=== PATIENT | female | born 1980 | race Caucasian/White ===

== ENCOUNTER 2020-02-11 13:29 | Emergency (ER) | payer OTHER, SELFPAY ==
[2020-02-11 13:37] VITALS: BP 132/101; PULSE 108; RESP 16; TEMP 36.8; O2SAT 98; BMI 24.7
--- NOTE | 2020-02-11 13:44 | XR_ITS ---
PROCEDURE: XR CHEST 2V CLINICAL HISTORY: weakness Smoker COMPARISON: No exams were available for comparison FINDINGS: The cardiomediastinal silhouette and pulmonary vascularity are within normal limits. The lungs are clear without infiltrates, suspicious nodules, or pleural effusions. No acute bony abnormalities. IMPRESSION: No acute findings. Dictated by: Pedro Paiz MD 02/11/2020 15:25 Electronically signed by Pedro Paiz MD in [facility] 02/11/2020 15:25
[2020-02-11 13:50] LABS: Microscopic, Urine URINE MICROSCOPIC (MICROSCOPIC)
[2020-02-11 13:53] LABS: Appearance,Urine CLOUDY (Clear); Bilirubin,Urine Negative (Negative); Blood, Urine Negative (Negative); Color,Urine YELLOW (Yellow); Glucose,Urine (UA) Negative (Negative); Ketones,Urine Negative (Negative); Leukocyte Esterase,Urine Negative (Negative); Nitrate,Urine Negative (Negative); PH,Urine 7.5 (5.0-8.5); Protein,Urine Negative (Negative); Urobilinogen,Urine 0.2 EU/dl (0.2)
[2020-02-11 14:00] LABS: Amorphous Sediment,Urine 2+ /lpf; Bacteria,Urine 2+ /lpf
--- NOTE | 2020-02-11 14:18 | PC.NURSE ---
x4 att for iv insucessful , lab called to draw blood
--- NOTE | 2020-02-11 14:19 | PC.NURSE ---
pt back from xray
[2020-02-11 14:45] LABS: Basophils # 0.1 K/mm3 (0-0.2); Basophils % 1.4 % (0.1-2.0); Eosinophils # 0.1 K/mm3 (0.0-0.4); Eosinophils % 1.7 % (0.1-12.0); Hematocrit 40.2 % (37.0-47.0); Hemoglobin 12.9 g/dL (12.2-16.2); Lymphocytes # 1.6 K/mm3 (0.7-4.5); Lymphocytes % 21.4 % (10-50); Mean Corpuscular HGB Conc 32.2 g/dL (31.8-35.4); Mean Corpuscular Hemoglobin 29.9 pg (27.0-31.2); Mean Corpuscular Volume 92.9 fl (81-99); Mean Platelet Volume 7.6 fl (7.4-10.4); Monocytes # 0.3 K/mm3 (0.1-1.0); Monocytes % 4.4 % (1.7-9.3); Neutrophils # 5.3 K/mm3 (1.8-7.8); Platelet Count 262 K/mm3 (142-424); Red Blood Count 4.32 M/mm3 (4.20-5.40); Red Cell Distribution Width 13.2 % (11.5-17.5); White Blood Count 7.5 K/mm3 (4.8-10.8)
[2020-02-11 15:07] LABS: Erythrocyte Sedimentation Rate 16 mm/hr (0-20)
[2020-02-11 15:08] LABS: Alanine Aminotransferase 23 U/L (12-78); Albumin Level 4.1 g/dl (3.5-5.0); Albumin/Globulin Ratio 1.4 (1.1-1.8); Alkaline Phosphatase 75 U/L (38-126); Anion Gap 10.5 mEq/L (5-15); Aspartate Amino Transferase 25 U/L (14-36); Blood Urea Nitrogen 18 mg/dl (7-17); Calcium 9.9 mg/dl (8.4-10.2); Carbon Dioxide 26 mmol/L (22.0-30.0); Chloride 105 mmol/L (98-107); Creatinine Clearance Estimated 102 mL/min (50-200); Estimated Glomerular Filt Rate 92 ml/min (>60); GFR (African American) 112 ML/MIN (>60); Globulin 2.9 g/dL (1.3-3.2); Glucose 84 mg/dl (74-100); Potassium 4.5 mmoL/L (3.5-5.1); Sodium 137 mmol/L (136-145)
[2020-02-11 15:11] LABS: Bilirubin,Total 0.1 mg/dl (0.2-1.3)
[2020-02-11 15:13] LABS: C-Reactive Protein 8.8 mg/L (0-4)
--- NOTE | 2020-02-11 15:33 | HMH.EDWEAK ---
ED Disposition Clinical Impression: Viral syndrome Disposition: Home, Self-Care Condition on Discharge: Good Instructions: DI for Muscle Weakness Additional Instructions: Please self quarantine for 14 days I am not given your diagnosis of COVID-19 but she does have symptoms that can present with COVID-19. Given the fact that you are feeling ill and have some the symptoms it is recommended that you do self quarantine for 14 days if her symptoms start to progress i.e. fevers shakes chills cough or increased shortness of breath please return to the emergency department for testing. Referrals: Provider,Referral, [Primary Care Provider] - - Critical Care Critical Care Time: No Attestation: On 02/11/20, the high probability of a clinically significant, sudden or life threatening deterioration of the following system(s) required my full and direct attention, intervention and personal management. The time I documented below is in addition to time spent performing reported procedures but includes the following listed in this critical care notation. Medical Decision Making - Medical Records Medical records reviewed: Yes: I reviewed the patient's medical records. - Alexsander Inquiry Pt receiving controlled substance: No Vital Signs: 02/11/20 13:37 Temperature 98.2 F Temperature Source Oral Pulse Rate [Left Radial] 108 H Respiratory Rate 16 Blood Pressure [Right Arm] 132/101 H Blood Pressure Mean [Right Arm] 111 Blood Pressure Position [Right Arm] Sitting 02 Sat by Pulse Oximetry 98 Oxygen Delivery Method Room Air - Lab Data Lab results reviewed: Yes: I reviewed the patient's lab results. Lab Results 02/11/20 13:38: Urine Color Yellow, Urine Appearance Cloudy, Urine pH 7.5, Ur Specific Vowinckel 1.020, Urine Protein Negative, Urine Glucose (UA) Negative, Urine Ketones Negative, Urine Blood Negative, Urine Nitrate Negative, Urine Bilirubin Negative, Urine Urobilinogen 0.2, Ur Leukocyte Esterase Negative, Urine RBC 3-5, Urine WBC 10-20, Ur Squamous Epith Cells 5-10, Amorphous Sediment 2+, Urine Bacteria 2+ 02/11/20 14:30: WBC 7.5, RBC 4.32, Hgb 12.9, Hct 40.2, MCV 92.9, MCH 29.9, MCHC 32.2, RDW 13.2, Plt Count 262, MPV 7.6, Neut % (Auto) 71.0, Lymph % (Auto) 21.4, Toole % (Auto) 4.4, Eos % (Auto) 1.7, Baso % (Auto) 1.4, Neut # (Auto) 5.3, Lymph # (Auto) 1.6, Toole # (Auto) 0.3, Eos # (Auto) 0.1, Baso # (Auto) 0.1 02/11/20 14:30: Sodium 137, Potassium 4.5, Chloride 105, Carbon Dioxide 26, Anion Gap 10.5, BUN 18 H, Creatinine 0.70, Estimated Creat Clear 102, Estimated GFR 92, Est GFR ( Amer) 112, Glucose 84, Calcium 9.9, Total Bilirubin 0.1 L, AST 25, ALT 23, Alkaline Phosphatase 75, C-Reactive Protein 8.8 H, Total Protein 7.0, Albumin 4.1, Globulin 2.9, Albumin/Globulin Ratio 1.4 02/11/20 14:30: ESR 16 Result diagrams: 02/11/20 14:30 02/11/20 14:30 Orders (Tests/Meds): ORDERS Category Date Time Status Lactic Acid Stat Lab 02/11/20 14:20 Ordered Blood Culture Stat Micro 02/11/20 14:20 Ordered Urine Culture Stat Micro 02/11/20 13:38 Received Weakness HPI - General Chief complaint: Weakness Stated complaint: no energy, hands swollen,rash Time Seen by Provider: 02/11/20 15:00 Mode of Arrival: Ambulatory Source of Information: Patient Limitations: No Limitations Description of Symptoms (Recalled from ER Triage Doc. by RN): to ed per pvt car with c/o fatique, generalized weakness, joint pain, swelling hands and feet for weeks, headache starting yesterday pt denies chest pain, fever, cough or sick contacts. - History of Present Illness HPI Narrative: Pleasant 39-year-old female presents the ED with arthralgias myalgias and fatigue. She states the symptoms been going on for about 2 to 3 days. 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 She also stated that she looked up online about Loni Chelsie's disease and
[2020-02-11 15:43] VITALS: BP 115/78; PULSE 78; RESP 18; TEMP 36.6; O2SAT 98
== END 2020-02-11 15:44 | disposition home or self-care (01) ==
PROVIDERS: Emergency Provider Family Medicine
DX: B34.9 Viral infection, unspecified (principal); M79.10 Myalgia, unspecified site; F17.210 Nicotine dependence, cigarettes, uncomplicated
CPT/HCPCS: 36415; 71046; 80053; 81001; 85025; 85651; 86140; 87086; 99282; 99283

== ENCOUNTER 2020-10-06 02:45 | Emergency (ER) | payer OTHER, SELFPAY ==
[2020-10-06 02:47] VITALS: BP 161/101; PULSE 105; RESP 16; TEMP 36.6; O2SAT 98; BMI 24.7
--- NOTE | 2020-10-06 03:11 | HMH.EDWNDL ---
ED Disposition Clinical Impression: Laceration of finger Qualifiers: Encounter type: initial encounter Finger: middle finger Damage to nail status: unspecified Foreign body presence: without foreign body Laterality: right Qualified Code(s): S61.212A - Laceration without foreign body of right middle finger without damage to nail, initial encounter Disposition: Home, Self-Care Condition on Discharge: Good Instructions: DI for Laceration Repair Additional Instructions: suture out 10 days and recheck if needed Referrals: PCP,No [Primary Care Provider] - - Critical Care Critical Care Time: No Attestation: On 10/06/20, the high probability of a clinically significant, sudden or life threatening deterioration of the following system(s) required my full and direct attention, intervention and personal management. The time I documented below is in addition to time spent performing reported procedures but includes the following listed in this critical care notation. Medical Decision Making - Medical Records Medical records reviewed: Yes: I reviewed the patient's medical records. - Alexsander Inquiry Pt receiving controlled substance: No Vital Signs: 10/06/20 02:47 Temperature 97.8 F Temperature Source Oral Pulse Rate [Left Radial] 105 H Respiratory Rate 16 Blood Pressure [Right Arm] 161/101 H Blood Pressure Mean [Right Arm] 121 02 Sat by Pulse Oximetry 98 Oxygen Delivery Method Room Air Orders (Tests/Meds): ORDERS Category Date Time Status XR finger RT min 2V Stat Exams 10/06/20 03:03 Ordered Wound/Laceration HPI - General Chief Complaint: Wound/Laceration Stated Complaint: cut middle finger on right hand Time Seen by Provider: 10/06/20 03:00 Mode of Arrival: Ambulatory Source of Information: Patient, Medical Record Limitations: No Limitations Description of Symptoms (Recalled from ER Triage Doc. by RN): pt stated she dropped a a mirror on her right index finger. laceration present to the right index finger on assessment. pt stated the mirror didnt break on impact. pt reported getting her tetanus shot 2 years ago. - History of Present Illness HPI narrative: lac to rt middle finger at tip - Onset (ago): hour(s) Extremity Location: Right: hand (middle finger ) Place: home Patient tetanus UTD: Yes Context: accidental Associated symptoms: none - Related Data Allergies Allergy/AdvReac Type Severity Reaction Status Date / Time INGREDIENT: NO KNOWN - NO Allergy Unknown Uncoded 10/02/17 15:33 KNOWN DRUG ALLERGY [facility] History - Hepatitis A Screen Drug use history?: No High risk sexual behaviors?: No History of sexually transmitted infection?: No Currently employed?: No Childcare worker?: No Do you have indoor plumbing?: Yes Do you have electricity?: Yes Attestation statement:: This patient has been screened for Hepatitis A risk factors. I have reviewed the patient's past medical history: Yes - Social History Smoking Status: Current every day smoker Tobacco Type: cigarettes # Packs/Day (cigarettes): 0 Alcohol Intake: never Occupational Status: other Housing: other ROS Obtained: Yes All systems reviewed & no additional complaints - Constitutional Constitutional: Denies fever(s) - Eyes Eyes: Denies change in vision - ENT Ears, Nose, Mouth, and Throat: Denies sore throat - Cardiovascular Cardiovascular: Denies chest pain - Respiratory Respiratory: No stridor - Gastrointestinal Gastrointestingal: Denies: abdominal pain - Genitourinary Female Genitourinary: Denies hematuria - Musculoskeletal Musculoskeletal: Denies joint pain - Integumentary/Breasts Skin/Breast: Reports as per HPI, Denies rash, Reports other (1 cm flap lac rt middle finger ) - Neurologic Neurologic: Denies seizure-like activity Physical Exam - General General appearance: alert - Head Head exam: normocephalic - Eye Eye exam: Present: ART EOMI - ENT ENT exam: Present: amarilys
[2020-10-06 03:41] VITALS: BP 146/98; PULSE 92; RESP 16; TEMP 36.6; O2SAT 98
== END 2020-10-06 03:44 | disposition home or self-care (01) ==
PROVIDERS: Emergency Provider Emergency Medicine
DX: S61.212A Laceration without foreign body of right middle finger without damage to nail, initial encounter (principal); W26.8XXA Contact with other sharp object(s), not elsewhere classified, initial encounter; Y92.019 Unspecified place in single-family (private) house as the place of occurrence of the external cause; F17.210 Nicotine dependence, cigarettes, uncomplicated
CPT/HCPCS: 12001; 99282

== ENCOUNTER → 2021-01-18 15:04 | Outpatient (CLI) | payer OTHER, SELFPAY ==
[2021-01-18 15:24] LABS: Alanine Aminotransferase 29 U/L (12-78); Albumin Level 4.6 g/dl (3.5-5.0); Albumin/Globulin Ratio 1.4 (1.1-1.8); Alkaline Phosphatase 77 U/L (38-126); Anion Gap 12.2 mEq/L (5-15); Aspartate Amino Transferase 37 U/L (14-36); Basophils # 0.1 K/mm3 (0-0.2); Basophils % 1.1 % (0.1-2.0); Bilirubin,Total 0.5 mg/dl (0.2-1.3); Blood Urea Nitrogen 14 mg/dl (7-17); Calcium 10.5 mg/dl (8.4-10.2); Carbon Dioxide 24 mmol/L (22.0-30.0); Chloride 106 mmol/L (98-107); Cholesterol 226 mg/dl (140-200); Eosinophils # 0.1 K/mm3 (0.0-0.4); Estimated Glomerular Filt Rate 69 ml/min (>60); GFR (African American) 83 ML/MIN (>60); Globulin 3.3 g/dL (1.3-3.2); Glucose 105 mg/dl (74-100); Hematocrit 44.3 % (37.0-47.0); Hemoglobin 14.7 g/dL (12.2-16.2); Mean Corpuscular HGB Conc 33.2 g/dL (31.8-35.4); Mean Corpuscular Hemoglobin 29.7 pg (27.0-31.2); Mean Corpuscular Volume 89.4 fl (81-99); Mean Platelet Volume 7.8 fl (7.4-10.4); Monocytes # 0.3 K/mm3 (0.1-1.0); Monocytes % 4.6 % (1.7-9.3); Neutrophils # 4.5 K/mm3 (1.8-7.8); Neutrophils % 64.4 % (37.0-80.0); Platelet Count 284 K/mm3 (142-424); Potassium 4.2 mmoL/L (3.5-5.1); Red Blood Count 4.96 M/mm3 (4.20-5.40); Red Cell Distribution Width 13.7 % (11.5-17.5); Sodium 138 mmol/L (136-145); Total Protein,Serum 7.9 g/dl (6.3-8.2); Triglycerides 93 mg/dl (30-150); VLDL Cholesterol 19 mg/dL (0-40)
[2021-01-18 15:34] LABS: HDL Cholesterol 121 mg/dl (40-60)
[2021-01-18 15:36] LABS: Direct LDL Cholesterol 80.21 mg/dL (100-129)
[2021-01-18 15:42] LABS: T4 (Thyroxine) 9.1 ug/dl (5.53-11.0)
[2021-01-18 15:44] LABS: 25-OH Vitamin D, Total 33.5 ng/mL (30-100)
== END ==
PROVIDERS: Visit Provider Nurse Practitioner Family
DX: Z00.00 Encounter for general adult medical examination without abnormal findings (principal); E55.9 Vitamin D deficiency, unspecified; Z79.899 Other long term (current) drug therapy
CPT/HCPCS: 80053; 80061; 82306; 84436; 84443; 85025

== ENCOUNTER → 2023-07-19 13:20 | Outpatient (CLI) | payer OTHER, SELFPAY ==
--- NOTE | 2023-07-19 13:23 | MM_ITS ---
PROCEDURE INFORMATION: Exam: Bilateral Screening 3D Mammography Exam date and time: 07/19/2023 1:19 PM Age: 42 years old Clinical indication: Screening examination; No personal or family history of breast cancer TECHNIQUE: Imaging protocol: Bilateral Screening tomosynthesis and 2D mammography including computer-aided detection (CAD) when performed. COMPARISON: No relevant prior studies available. FINDINGS: MAMMOGRAPHY: Breast composition: The breast is heterogeneously dense, which may obscure small masses. Mass: 2 cm partially obscured mass within the lower slightly inner left middle 1/3 should be further assessed with spot views in CC/MLO projection. Ultrasound should also be performed. Architectural distortion: No new or suspicious architectural distortion. Calcifications: Calcifications within the upper outer anterior left breast should be assessed with spot MAGNIFICATION views in CC/ML projection for morphologic characterization. Asymmetric density: No new or suspicious asymmetric density is present Skin thickening: None. Axillary adenopathy: None. IMPRESSION: 1. Calcifications within the upper outer anterior left breast should be assessed with spot MAGNIFICATION views in CC/ML projection for morphologic characterization. 2. 2 cm partially obscured mass within the lower slightly inner left middle 1/3 should be further assessed with spot views in CC/MLO projection. Ultrasound should also be performed. ASSESSMENT: BI-RADS category 0: Incomplete-need additional imaging evaluation and/or prior mammograms for comparison.
== END ==
PROVIDERS: PCP Nurse Practitioner Family; Visit Provider Nurse Practitioner Family
DX: Z12.31 Encounter for screening mammogram for malignant neoplasm of breast (principal)
CPT/HCPCS: 77063; 77067

== ENCOUNTER → 2023-07-20 08:27 | Outpatient (CLI) | payer OTHER, SELFPAY ==
[2023-07-20 09:29] LABS: Basophils # 0.1 K/mm3 (0-0.2); Basophils % 0.6 % (0.1-2.0); Eosinophils % 0.4 % (0.1-12.0); Hematocrit 47.3 % (37.0-47.0); Hemoglobin 14.8 g/dL (12.2-16.2); Lymphocytes # 1.7 K/mm3 (0.7-4.5); Lymphocytes % 20.5 % (10-50); Mean Corpuscular HGB Conc 31.3 g/dL (31.8-35.4); Mean Corpuscular Hemoglobin 28.8 pg (27.0-31.2); Mean Corpuscular Volume 92.1 fl (81-99); Mean Platelet Volume 7.8 fl (7.4-10.4); Monocytes # 0.4 K/mm3 (0.1-1.0); Monocytes % 4.2 % (1.7-9.3); Neutrophils # 6.2 K/mm3 (1.8-7.8); Neutrophils % 74.4 % (37.0-80.0); Platelet Count 240 K/mm3 (142-424); Red Blood Count 5.14 M/mm3 (4.20-5.40); Red Cell Distribution Width 13.8 % (11.5-17.5); White Blood Count 8.3 K/mm3 (4.8-10.8)
[2023-07-20 10:54] LABS: Alanine Aminotransferase 17 U/L (12-78); Albumin Level 4.8 g/dl (3.5-5.0); Albumin/Globulin Ratio 1.4 (1.1-1.8); Alkaline Phosphatase 83 U/L (38-126); Anion Gap 14.7 mEq/L (5-15); Aspartate Amino Transferase 22 U/L (14-36); Bilirubin,Total 1.3 mg/dl (0.2-1.3); Blood Urea Nitrogen 9 mg/dl (7-17); Calcium 9.9 mg/dl (8.4-10.2); Carbon Dioxide 25 mmol/L (22.0-30.0); Chloride 107 mmol/L (98-107); Cholesterol 287 mg/dl (140-200); Estimated Glomerular Filt Rate 109 ml/min (>60); GFR (African American) 131 ML/MIN (>60); Globulin 3.5 g/dL (1.3-3.2); Glucose 100 mg/dl (74-100); Potassium 3.7 mmoL/L (3.5-5.1); Sodium 143 mmol/L (136-145); Total Protein,Serum 8.3 g/dl (6.3-8.2); Triglycerides 106 mg/dl (30-150); VLDL Cholesterol 21 mg/dL (0-40)
[2023-07-20 11:02] LABS: Chol/HDL Ratio 2.7 (1-3.5); HDL Cholesterol 108 mg/dl (40-60)
[2023-07-20 11:06] LABS: Direct LDL Cholesterol 147.77 mg/dL (100-129)
[2023-07-20 11:24] LABS: Thyroid Stimulating Hormone 1.17 uIU/mL (0.465-4.68)
[2023-07-21 06:12] LABS: LH 66.7 mIU/mL (.)
== END ==
PROVIDERS: PCP Nurse Practitioner Family; Visit Provider Nurse Practitioner Family
DX: Z13.220 Encounter for screening for lipoid disorders (principal); Z76.89 Persons encountering health services in other specified circumstances; R61 Generalized hyperhidrosis
CPT/HCPCS: 36415; 80053; 80061; 83001; 83002; 84443; 85025

== ENCOUNTER → 2023-08-17 14:13 | Outpatient (CLI) | payer OTHER, SELFPAY ==
--- NOTE | 2023-08-17 14:23 | US_ITS ---
PROCEDURE INFORMATION: Exam: US Left Breast, Complete MG Left Diagnostic Breast Tomosynthesis Exam date and time: 08/17/2023 2:26 PM Age: 42 years old Clinical indication: Patient recalled on the basis of a screening mammogram for further evaluation; Left breast; mass and calcifications TECHNIQUE: Imaging protocol: Complete ultrasound of all four quadrants of the left breast and the retroareolar regions, including ultrasound of the axilla when performed. Left Diagnostic tomosynthesis and 2D mammography including computer-aided detection (CAD) when performed. Unilateral or bilateral exam. COMPARISON: MG MM DIG SCREENING MAMM BI W/CAD 07/19/2023 1:19 PM FINDINGS: MAMMOGRAPHY: Digital diagnostic spot compression views of the lower inner left breast demonstrates a persistent lobulated 2.0 cm mass. There is no associated architectural distortion. Digital diagnostic magnification views of the anterior left upper outer quadrant demonstrates numerous loosely grouped predominantly round and oval calcifications. Some of the calcifications appear to be layering in the 90 degree lateral view. There is no associated soft tissue mass. The calcifications span approximately 7.4 cm of breast tissue. ULTRASOUND: Sonographic images of the left breast including the retroareolar region, all 4 quadrants and the axilla do not demonstrate any solid masses. A cluster of cysts with a combined dimension of 1 cm are noted in the 7 o'clock axis 2 cm from the nipple most closely corresponding to the mass on mammography. Additional scattered cysts are noted including upper probable debris-filled cyst in the 11 o'clock axis 2 cm from the nipple measuring 1.1 x 0.3 x 0.6 cm. No architectural distortion or acoustical shadowing. No skin thickening or axillary adenopathy. IMPRESSION: 1. Probably benign geographic calcifications in the left upper outer quadrant. A six-month follow-up diagnostic left mammogram with magnification views are recommended to ensure stability over time. 2. Mass on screening mammography in the left lower inner quadrant corresponds to underlying benign cystic change sonographically. 3. Sonographically detected probably benign left 11 o'clock axis mass. A six-month follow-up targeted left breast ultrasound is recommended to ensure stability over time. ASSESSMENT: BI-RADS Category 3: Probably benign
== END ==
LOC: RAD 14:13
PROVIDERS: PCP Nurse Practitioner Family; Visit Provider Nurse Practitioner Family
DX: R92.8 Other abnormal and inconclusive findings on diagnostic imaging of breast (principal)
CPT/HCPCS: 76641; 77061; 77065; G0279

== ENCOUNTER 2023-10-02 05:37 | Emergency (ER) | payer OTHER, SELFPAY ==
--- NOTE | 2023-10-02 05:51 | XR_ITS ---
PROCEDURE INFORMATION: Exam: XR Chest Exam date and time: 10/02/2023 6:04 AM Age: 42 years old Clinical indication: Sternal or substernal pain; Additional info: Chest pain TECHNIQUE: Imaging protocol: Radiologic exam of the chest. Views: 1 view. COMPARISON: CR XR CHEST 2V 02/11/2020 2:09 PM FINDINGS: Lungs: Punctate calcific granulomas bilaterally. Pleural spaces: No pleural effusion or pneumothorax. Heart/Mediastinum: Cardiomediastinal silhouette is normal. Bones/joints: NA IMPRESSION: No active lung parenchymal lesion.
[2023-10-02 05:52] VITALS: BP 168/114; PULSE 88; RESP 22; TEMP 36.7; O2SAT 98; BMI 29.2
[2023-10-02 06:03] LABS: Microscopic, Urine URINE MICROSCOPIC (MICROSCOPIC)
[2023-10-02 06:05] LABS: Appearance,Urine CLEAR (Clear); Bilirubin,Urine Negative (Negative); Blood, Urine Negative (Negative); Color,Urine YELLOW (Yellow); Glucose,Urine (UA) Negative (Negative); Ketones,Urine Negative (Negative); Leukocyte Esterase,Urine Negative (Negative); Nitrate,Urine Negative (Negative); Protein,Urine Negative (Negative); Specific Gravity, Urine <= 1.005 (1.005-1.030); Urobilinogen,Urine 0.2 EU/dl (0.2)
--- NOTE | 2023-10-02 06:07 | HMH.EDGENADL ---
Discharge Plan Disposition Patient Disposition: Left Against Medical Advice Prescriptions Prescriptions: No Action fluticasone propionate 50 mcg/actuation spray,suspension 1 spray intranasal Q12H Rx Instructions: administer into each nostril sertraline [Zoloft] 100 mg tablet 100 mg PO DAILY Qty: 30 1RF Lybalvi 5-10 mg tablet 1 tab PO QHS Qty: 30 2RF Referrals Follow up/Referrals: Provider,Referral, MD [Primary Care Provider] - See instructions Activity Restrictions/Add. Instructions Additional Instructions/Restrictions: Please follow-up with your primary care provider. Please return to the emergency department if you develop any new or worsening symptoms or become concerned for your health. Clinical Impressions Clinical Impression: Hallucinations, Anxiety, Chest pain Discharge ED Provider: David Nickerson Adult HPI General Chief complaint: Psychiatric Symptoms Stated complaint: psych Time Seen by Provider: 10/02/23 05:48 Mode of Arrival: EMS Source of Information: Patient Limitations: No Limitations Description of Symptoms (Recalled from ER Triage Doc. by RN): 42 YO FEMALE PRESENTS WITH EXAC OF BIPOLAR DISORDER ACCOMPANIED BY VISUAL AND AUDITORY HALLUCINATIONS INVOLVING PEOPLE LAUGHING AT HER THAT SHE WAS ABLE TO SEE USING A SPOON TO LOOK BEHIND HER . PATIENT IS AWARE OF BIPOLAR DISORDER AND RECENTLY WAS PLACED ON MEDS BY TINY WALTERS NP AT THE [facility] IN [facility]. HYPERTENSIVE, BUT OTHER VSS. AFEBRILE. BILATERAL HAND EDEMA AND ERYTHEMA PRESENT, DENIES KNOWING ORIGIN. USES METH. LAST ADMITTED USE WAS 24 HOURS AGO. STATES SHE HASN'T SLEPT IN 36 HOURS, SEES THE 'WADE MOVING' IN HER HOUSE. CALLED EMS FOR ANXIETY RELATED CHEST DISCOMFORT. History of Present Illness HPI narrative: 42-year-old female, history of PTSD, anxiety, depression, reported bipolar disorder, chronic opioid and meth use presents for worsening hallucinations. She reports that she has had chronic audio and visual hallucinations for years, they worsened significantly yesterday after she used meth the day before. She reports that these hallucinations are severe causing her significant anxiety and markedly impacting her life. She was recently seen at the [facility] behavioral health clinic where she was initiated on olanzapine-samidorphan which she has been taking. She adamantly denies any suicidal homicidal ideation. She provided numerous examples of hallucinations including people in the wade, voices, people in the bed, etc. The voices are not commanding but they talk about her. Patient also reports acute on chronic chest pain, reports it may be related to anxiety. She reports that she only uses IV meth recently as far she knows. Related Data Home Medications Medication Instructions Recorded Confirmed fluticasone propionate 50 1 spray intranasal Q12H 09/26/23 09/26/23 mcg/actuation nasal spray,suspension Previous Rx's Medication Instructions Recorded olanzapine 5 mg-samidorphan 10 mg 1 tab PO QHS #30 tabs 09/26/23 tablet (Lybalvi) sertraline 100 mg tablet (Zoloft) 100 mg PO DAILY #30 tabs 09/26/23 Allergies Allergy/AdvReac Type Severity Reaction Status Date / Time INGREDIENT: NO KNOWN - NO Allergy Unknown Uncoded 09/26/23 11:33 KNOWN DRUG ALLERGY [facility] Disclaimer: The information contained in this section may have been updated after the patient was seen, as this information can be updated by other users. Medical History (Updated 10/02/23 @ 06:55 by David Nickerson MD) Bipolar I disorder History of hepatitis C Hypertension Surgical History (Updated 09/26/23 @ 11:50 by Tiny Walters APRN) History of hysterectomy History of surgery on arm Social History (Updated 09/26/23 @ 11:47 by Tiny Walters APRN) Smoking Status: Current every day smoker tobacco type: cigarettes packs per day: 1 and e-cigarettes second hand exposur
--- NOTE | 2023-10-02 06:08 | PC.NURSE ---
Attempted to start IV on pt right AC, pt stated it would not work and requested for me to take IV out because it hurt too bad. I gave her the oprion of someone else sticking her or myself and she said no one would get one in her veins were shit and she was dehydrated.
--- NOTE | 2023-10-02 06:15 | PC.NURSE ---
Pt provided water and told we would let her drink that and try again for IV in a few minutes
[2023-10-02 06:18] LABS: Benzodiazepines Screen,Urine Negative ng/ml (<200)
[2023-10-02 06:19] LABS: Barbiturates Screen,Urine Negative ng/ml (<200)
[2023-10-02 06:20] LABS: Cannabinoid Screen,Urine Negative ng/ml (<50); Methadone Screen,Urine Negative ng/ml (<300)
[2023-10-02 06:21] LABS: Cocaine Screen,Urine Negative ng/ml (<300)
[2023-10-02 06:22] LABS: Opiate Screen,Urine Negative ng/ml (<300); Phencyclidine Screen,Urine Negative ng/ml (<25)
--- NOTE | 2023-10-02 06:22 | ECG_ITS ---
APPROVED REPORT Exam: Resting ECG HR:83 bpm ECG Measurements Heart Rate 83 AXES DC 145 P 6 QRSd 86 QRS 48 QT 380 T 43 QTc 420 Conclusion SINUS RHYTHM NORMAL ECG UNCONFIRMED REPORT Electronically signed by : Ugo Toney MD 10/03/2023 18:41:21
--- NOTE | 2023-10-02 06:27 | PC.NURSE ---
EKG performed, pt requested a gown, gown left at bedside for her to change in to.
--- NOTE | 2023-10-02 06:39 | PC.NURSE ---
Dr Nickerson spoke with pt explaining the need for iV. Pt willing to let us try again.
--- NOTE | 2023-10-02 06:44 | PC.NURSE ---
Judith Diamond and myself attempted to start another IV, pt refuses to let us try to advance catheter, told us to get it out. David aware
[2023-10-02 06:54] VITALS: BP 168/114; PULSE 88; RESP 22; TEMP 36.6; O2SAT 98
--- NOTE | 2023-10-02 07:01 | PC.NURSE ---
Pt signed AMA form after speaking with Dr Nickerson, Pt refuses for him to do US IV, wants to leave AMA
[2023-10-02 13:37] LABS: Bacteria,Urine Trace /lpf; WBC,Urine Occasional #/hpf (0-3)
[2023-10-05 06:13] LABS: Amphetamine Positive (.); Amphetamine (GC/MS) 1368 ng/mL (Cutoff=500); Amphetamines Positive (.); Methamphetamine Positive (.); Methamphetamine (GC/MS) >3000 ng/mL (Cutoff=500)
== END 2023-10-02 07:02 | disposition home or self-care (01) ==
PROVIDERS: Emergency Provider Emergency Medicine
DX: R44.0 Auditory hallucinations (principal); R44.1 Visual hallucinations; R07.9 Chest pain, unspecified; F31.9 Bipolar disorder, unspecified; F43.10 Post-traumatic stress disorder, unspecified; I10 Essential (primary) hypertension; B19.20 Unspecified viral hepatitis C without hepatic coma
CPT/HCPCS: 71045; 80305; 80324; 81001; 93005; 99285

== ENCOUNTER 2024-01-10 12:37 | Outpatient (CLI) | payer OTHER, SELFPAY ==
[2024-01-11 22:35] LABS: Neisseria gonorrhoeae, NAA Negative (Negative)
== END 2024-01-10 23:59 ==
LOC: LAB.DROPOF 12:38
PROVIDERS: PCP Nurse Practitioner Family; Visit Provider Nurse Practitioner Family
DX: N76.0 Acute vaginitis (principal); B96.89 Other specified bacterial agents as the cause of diseases classified elsewhere
CPT/HCPCS: 87491; 87591

== ENCOUNTER 2024-05-16 11:44 | Outpatient (CLI) | payer OTHER, SELFPAY | END 2024-05-16 23:59 | disposition home or self-care (01) | LOC: LAB.DROPOF 05-19 11:45 | PROVIDERS: PCP Student in an Organized Health Care Education/Training Program; Visit Provider Student in an Organized Health Care Education/Training Program | DX: R05.9 Cough, unspecified (principal) | CPT/HCPCS: 87635 ==

== ENCOUNTER 2024-07-11 10:40 | Outpatient (CLI) | payer OTHER, SELFPAY ==
[2024-07-11 10:49] LABS: Microscopic, Urine URINE MICROSCOPIC (MICROSCOPIC)
[2024-07-11 12:04] LABS: Albumin Level 4.9 g/dl (3.5-5.0); Chloride 107 mmol/L (98-107); Potassium 4.5 mmoL/L (3.5-5.1); Sodium 135 mmol/L (136-145)
[2024-07-11 12:06] LABS: Blood Urea Nitrogen 15 mg/dl (7-17); Estimated Glomerular Filt Rate 90 ml/min (>60); GFR (African American) 109 ML/MIN (>60)
[2024-07-11 12:07] LABS: Alanine Aminotransferase 17 U/L (12-78); Albumin/Globulin Ratio 1.6 (1.1-1.8); Alkaline Phosphatase 68 U/L (38-126); Anion Gap 10.5 mEq/L (5-15); Aspartate Amino Transferase 29 U/L (14-36); Bilirubin,Total 0.9 mg/dl (0.2-1.3); Calcium 9.6 mg/dl (8.4-10.2); Carbon Dioxide 22 mmol/L (22.0-30.0); Cholesterol 309 mg/dl (140-200); Glucose 91 mg/dl (74-100); Total Protein,Serum 7.9 g/dl (6.3-8.2); Triglycerides 65 mg/dl (30-150); VLDL Cholesterol 13 mg/dL (0-40)
[2024-07-11 12:18] LABS: Direct LDL Cholesterol 134.85 mg/dL (100-129)
[2024-07-11 12:24] LABS: Triiodothryronine (T3) Uptake 29 % (23.5-40.5)
[2024-07-11 12:25] LABS: Free Thyroxine Index 2.4 ug/dL (5.93-13.13); T4 (Thyroxine) 8.2 ug/dl (5.53-11.0)
[2024-07-11 12:29] LABS: Appearance,Urine CLEAR (Clear); Bilirubin,Urine Negative (Negative); Blood, Urine Negative (Negative); Color,Urine YELLOW (Yellow); Glucose,Urine (UA) Negative (Negative); Ketones,Urine Negative (Negative); Leukocyte Esterase,Urine Negative (Negative); Nitrate,Urine Negative (Negative); Protein,Urine Negative (Negative); Specific Gravity, Urine <= 1.005 (1.005-1.030); Urobilinogen,Urine 0.2 EU/dl (0.2)
[2024-07-11 12:38] LABS: Thyroid Stimulating Hormone 1.11 uIU/mL (0.465-4.68)
[2024-07-11 12:40] LABS: Chol/HDL Ratio 2.7 (1-3.5); HDL Cholesterol 113 mg/dl (40-60)
[2024-07-11 13:28] LABS: Vitamin B12 587 pg/mL (239-931)
== END 2024-07-11 23:59 | disposition home or self-care (01) ==
LOC: LAB 10:43
PROVIDERS: PCP Nurse Practitioner Family; Visit Provider Nurse Practitioner Obstetrics & Gynecology
DX: Z00.00 Encounter for general adult medical examination without abnormal findings (principal); R53.83 Other fatigue; Z13.1 Encounter for screening for diabetes mellitus; Z11.3 Encounter for screening for infections with a predominantly sexual mode of transmission
CPT/HCPCS: 36415; 80053; 80061; 81001; 82607; 84436; 84439; 84443; 84479; 87086

== ENCOUNTER 2025-01-24 07:25 | Emergency (ER) | payer OTHER, SELFPAY ==
[2025-01-24 07:25] VITALS: BP 120/81; PULSE 68; RESP 16; TEMP 36.7; O2SAT 98; BMI 28.9
--- OUTSIDE RECORDS SUMMARY | 2025-01-24 07:31 | XMS_ITS | Continuity of Care Document ---
Author Organization [facility] Phone Care Team Providers Care Railway Shunter Name Role Phone ELSI LOMBARDO Primary Care Unavailable UNDEFINED, PROVIDER Admitting Unavailable UNDEFINED, PROVIDER Primary Attending Unavailabl e ALLERGIES AND ADVERSE REACTIONS ALLERGIES AND ADVERSE REACTIONS Code System Allergy Substance Adverse Reaction Date Reaction (Severity) Comment Status Reported By Updated By No Known Allergies [email or web address] on September 27, 2024 12:28:13 AM UT RESULTS Patient: JESSE MIRANDA Date of : December 14 9 LABORATORY RESULTS ORDER 200: COMP METABOLIC PA GABRIELLE (LOINC: 93023-7) ORDER DATE: December 11, 2024 2:06:00 PM UT Specimen Source: PLASMA Specimen Type: Plasma specim en PERFORMING LAB: [address] [id number] Result Comment: Final Result Date: December 11, 2024 3:14:00 PM UT (TECH: JNJ) LOINC TEST FLAG RESULT REFERENCE RANGE UPDA DEMIAN BY 2951-2 Sodium [Moles/volume ] in Serum or Plasma N 138 mmol/L 136 mmol/L - 145 mmol/L December 11, 2024 3:14:00 PM UT (TECH: JNJ) 2823-3 Potassium [Moles/volume] in Serum or Plasma N 4.6 mmol/L 3.6 mmol/L - 5.0 mmol/L December 11, 2024 3:14:00 PM UT (TECH: JNJ) 2075-0 Chloride [Moles/volume] in Serum or Plasma N 106 mmol/L 98 mmol/L - 107 mmol/L December 11, 2024 3:14:00 PM UT (TECH: JNJ) 8-9 Carbon dioxide, tota l [Moles/volume] in Serum or Plasma N 22.5 mmol/L 21.0 mmol/L - 32.0 mmol/L December 11, 2024 3:14:00 PM UT (TECH: FlowBelow Aero) 93025-6 Anion gap in Blood N 14.1 F ebruary 2024 3:14:00 PM UTC (TECH: FlowBelow Aero) 2345-7 Glucose [Mass/volume ] in Serum or Plasma N 74 mg/dl 70 mg/dl - 120 mg/dl December 11, 2024 3:14:00 PM UTC (TECH: FlowBelow Aero) 6299-2 Urea nitrogen [Mass/volume] in Blood N 16 mg/dL 7 mg/dL - 18 mg/dL December 11, 2024 3:14:00 PM UTC (TECH: FlowBelow Aero) 63428-1 Creatinine [Moles/volume] in Blood N 0.6 mg/dL 0.6 mg/dL - 1.3 mg/dL December 11, 2024 3:14:00 PM UT (TECH: FlowBelow Aero) 66106-6 Glomerular filtratio n rate/1.73 sq M.predicted by Creatinine-based formula (MDRD) N 113 mlpermin 60 mlpermin December 11, 2024 3:14:00 PM UTC (TECH: FlowBelow Aero) 2885-2 Protein [Mass/volume ] in Serum or Plasma N 7.0 g/dl 6.4 g/dl - 8.2 g/dl December 11, 2024 3:14:00 PM UT (TECH: FlowBelow Aero) 1751-7 Albumin [Mass/volume ] in Serum or Plasma N 3.5 g/dl 3.4 g/dl - 5.0 g/dl December 11, 2024 3:14:00 PM UTC (TECH: FlowBelow Aero) 2336-6 Globulin [Mass/volum e] in Serum N 3.5 December 11, 2024 3:14:00 PM UTC (TECH: FlowBelow Aero) 1759-0 Albumin/Globulin [Ma ss Ratio] in Serum or Plasma N 1.0 0.7 - 2 December 11, 2024 3:14:00 PM UT (TECH: FlowBelow Aero) 14726-7 Calcium [Mass/volume ] in Serum or Plasma N 8.8 mg/dl 8.5 mg/dl - 10.5 mg/dl December 11, 2024 3:14:00 PM UTC (TECH: FlowBelow Aero) 1975-2 Bilirubin.total [Mass/volume] in Serum or Plasma N 0.50 mg/dL 0.10 mg/dL - 1.00 mg/dL December 11, 2024 3:14:00 PM UTC (TECH: FlowBelow Aero) 1920-8 Aspartate aminotransferase [Enzymatic activity/volume] in Serum or Plasma N 18 U/L 0 U/L - 37 U/L December 11, 2024 3:14:00 PM UTC (TECH: FlowBelow Aero) 1742-6 Alanine aminotransferase [Enzymatic activity/volume] in Serum or Plasma N 17 U/L 0 U/L - 65 U/L December 11, 2024 3:14:00 PM UTC (TECH: FlowBelow Aero) 6768-6 Alkaline phosphatase [Enzymatic activity/volume] in Serum or Plasma N 70 U/L 46 U/L - 116 U/L December 11, 2024 3:14:00 PM UT (TECH: FlowBelow Aero) ORDER 300: RPR QUAL (LOINC: 94119-7) ORDER DATE: December 11, 2024 2:06:00 PM UT Specimen Source: SERUM Specimen Type: Serum specime n PERFORMING LAB: [address] [id number] Result Comment: December 16 8:09:00 PM UT Performed at: [facility] Result Comment: December 16, 2024 8:09:[address] [id number] Result Comment: December 16, 2024 8:09:00 PM UT Professional Athlete: Malachi Mary PhD, Phone: [phone] Result Comment: December 16, 2024 8:09:00 PM UT Final Result Date: December 11, 2024 2:06:00 PM UT (TECH: LAB) LOINC TEST [place] [address]-8 Reagin Ab [Presence] in Serum by RPR N Non Reactive Non Reactive December 11 2:06:00 PM UT (TECH: LAB) LABORATORY NARRATIVE RESULTS Information is not available RADIOLOGY RESULTS Information is not available PATHOLOGY NARRATIVE RESULTS Information is not available MICROBIOLOGY RESULTS No Micro Labs/Results Exist for Patient BLOOD ADMIN RESULTS Information is not available MEDICATIONS HOME MEDICATIONS Status RXNORM ND Medication Dose Route Frequency Dates Comments Reported By Updated By Drug Treatment Unknown DISCHARGE MEDICATIONS Status RXNORM NDC Medication Dose Route Frequency Dates Comments Physician Updated By No Discharge Medication Info rmation Available INPATIENT MEDICATIONS Status RXNORM NDC Medication Dose Route Frequency Rat e Quantity Dates Comments Physician Updated By No Inpatient Medication Info rmation Available SOCIAL HISTORY SOCIAL HISTORY SNOMED-CT Social History Element Description Effective Dates Offered Cessation Comment UpdatedBy [id number] Historical Tobacco smoking status Unknown If Ever Smoked [id number] on September 27, 2024 12:15:34 AM [facility] [id number] Historical Tobacco smoking status Never Smoked [id number] on November 05, 2017 5:03:51 PM [facility] SOCIAL HISTORY - Gender Sex: Female SOCIAL HISTORY - Status : status i nformation is not available Intention in Next Year: intention information is not available SOCIAL HISTORY - Sexual Behavior Sexual Orientation Gender Identity SNOMED-CT Description SNO MED -CT Description Activity Level No of Partners Partner Type UpdatedBy Information is not available HEALTH CONCERNS Problems Concern Status Health Concern problem infor mation not available. Smoking Status Status Years Used Consumed packs p er day Health Concern smoking histo ry information not available. Family History Concern Status Health Concern family histor y information not available. ENCOUNTERS ENCOUNTER INFORMATION Reason for Visit LAB Admission December 11, 2024 1:54:[address] [id number] Discharge December 11, 2024 1:54:00 PM [facility] DISCHARGED TO HOME OR SELF CARE ENCOUNTER DIAGNOSES Notes information is not adela ilable. Code System Diagnosis Onset Date Diagnosis information is not available. ABSTRACT DIAGNOSES Code System Diagnosis Updated By Z11.3 ICD10 ENCOUNTER FOR SC REENING FOR INFECTIONS WITH A PREDOMINANTLY SEXUAL MODE OF TRANSMISSION [id number] on December 15, 2024 6:07:00 AM [facility] Z13.0 ICD10 ENCOUNTER FOR SC REENING FOR DISEASES OF THE BLOOD AND BLOOD-FORMING ORGANS AND CERTAIN DISORDERS INVOLVING THE IMMUNE MECHANISM [id number] on December 15, 2024 6:07:00 AM [facility] Z11.3 ICD10 ENCOUNTER FOR SC REENING FOR INFECTIONS WITH A PREDOMINANTLY SEXUAL MODE OF TRANSMISSION [id number] on December 15, 2024 6:07:00 AM [facility] Z13.0 ICD10 ENCOUNTER FOR SC REENING FOR DISEASES OF THE BLOOD AND BLOOD-FORMING ORGANS AND CERTAIN DISORDERS INVOLVING THE IMMUNE MECHANISM [id number] on December 15, 2024 6:07:00 AM [facility] CARE TEAM Care Railway Shunter Role ELSI LOMBARDO Primary Care PROVIDER UNDEFINED Admitting PROVIDER UNDEFINED Primary Attending CARE TEAM CARE information security Role on Team Status Start Date End Date Update d By GRUPO CALZADA PCP normal December 11, 2024 5:00:00 AM UT December 11, 2024 1:54:00 PM UT [id number] on December 11, 2024 1:56:29 PM UT UNDEFINED PROVIDER Attending normal December 11, 2024 5:00:00 AM [facility] December 11, 2024 1:54:00 PM [facility] [id number] on December 11, 2024 1:56:29 PM [facility] UNDEFINED PROVIDER Admitting normal December 11, 2024 5:00:00 AM UT December 11, 2024 1:54:00 PM [facility] [id number] on December 11, 2024 1:56:29 PM [facility]
--- NOTE | 2025-01-24 07:37 | XR_ITS ---
PROCEDURE INFORMATION: Exam: XR Left Elbow Exam date and time: 01/24/2025 7:45 AM Age: 44 years old Clinical indication: Injury or trauma; Fall; Blunt trauma (contusions or hematomas); Elbow; Left; Additional info: Fall down flight of stairs, mid back pain, L elbow TECHNIQUE: Imaging protocol: Radiologic exam of the left elbow. Views: 3 or more views. COMPARISON: CR XR HUMERUS LT 01/24/2025 7:42 AM FINDINGS: Bones/joints: No visible fracture or dislocation. No joint effusion Soft tissues: Normal. IMPRESSION: No visible fracture or dislocation.
--- NOTE | 2025-01-24 07:37 | CT_ITS ---
PROCEDURE INFORMATION: Exam: CT Head Without Contrast Exam date and time: 01/24/2025 8:03 AM Age: 44 years old Clinical indication: Injury or trauma; Fall; Blunt trauma (contusions or hematomas); Additional info: Fall down flight of stairs, mid back pain, L elbow TECHNIQUE: Imaging protocol: Computed tomography of the head without contrast. Radiation optimization: All CT scans at this facility use at least one of these dose optimization techniques: automated exposure control; mA and/or kV adjustment per patient size (includes targeted exams where dose is matched to clinical indication); or iterative reconstruction. COMPARISON: CT HEAD/BRAIN WO CON 01/24/2025 8:03 AM FINDINGS: Brain: No hemorrhage. No mass effect. The basal cisterns are patent. No midline shift. 9 mm focus of encephalomalacia right cerebellar hemisphere likely related to chronic lacunar infarct. Cerebral ventricles: No ventriculomegaly. Paranasal sinuses: Mild mucosal thickening of the maxillary sinuses. Mucous debris within the right sphenoid sinus chamber. Mastoid air cells: Visualized mastoid air cells are well aerated. Bones: No acute fracture. Soft tissues: Unremarkable. IMPRESSION: 1. No CT evidence of an acute intracranial abnormality. 2. 9 mm focus of encephalomalacia right cerebellar hemisphere likely related to chronic lacunar infarct. 3. Chronic sinusitis.
--- NOTE | 2025-01-24 07:37 | CT_ITS ---
PROCEDURE INFORMATION: Exam: CT Lumbar Spine Without Contrast Exam date and time: 01/24/2025 8:12 AM Age: 44 years old Clinical indication: Injury or trauma; Fall; Blunt trauma (contusions or hematomas); Additional info: Fall down flight of stairs, mid back pain, L elbow TECHNIQUE: Imaging protocol: Computed tomography of the lumbar spine without contrast. Radiation optimization: All CT scans at this facility use at least one of these dose optimization techniques: automated exposure control; mA and/or kV adjustment per patient size (includes targeted exams where dose is matched to clinical indication); or iterative reconstruction. COMPARISON: CT THORACIC SPINE WO CON 01/24/2025 8:09 AM FINDINGS: Bones/joints: 20 mm anterolisthesis of L5 over S1 attributed to a chronic pars defect. Alignment is otherwise maintained. There is preservation of vertebral body heights. No acute fracture. Sacroiliac joints are intact. There is no significant osseous encroachment of the spinal canal. There is severe bilateral neural foramina narrowing at L4-L5 and L5-S1 level. Soft tissues: Unremarkable. 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 Otherwise, no acute fracture or traumatic subluxation.
--- NOTE | 2025-01-24 07:37 | XR_ITS ---
PROCEDURE INFORMATION: Exam: XR Left Humerus Exam date and time: 01/24/2025 7:42 AM Age: 44 years old Clinical indication: Injury or trauma; Fall; Blunt trauma (contusions or hematomas); Arm, upper; Left; Additional info: Fall down flight of stairs, mid back pain, L elbow TECHNIQUE: Imaging protocol: Radiologic exam of the left humerus. Views: 2 or more views. COMPARISON: CR XR HUMERUS LT 01/24/2025 7:42 AM FINDINGS: Bones/joints: Normal. Soft tissues: Normal. IMPRESSION: No acute findings.
--- NOTE | 2025-01-24 07:37 | XR_ITS ---
PROCEDURE INFORMATION: Exam: XR Pelvis Exam date and time: 01/24/2025 7:49 AM Age: 44 years old Clinical indication: Injury or trauma; Fall; Blunt trauma (contusions or hematomas); Bilateral; Pelvic region; Additional info: Fall down flight of stairs, mid back pain, L elbow TECHNIQUE: Imaging protocol: Radiologic exam of the pelvis. Views: 1 or 2 view. COMPARISON: No relevant prior studies available. FINDINGS: Bones/joints: No visible fracture or dislocation. Soft tissues: Unremarkable. IMPRESSION: No visible fracture or dislocation.
--- NOTE | 2025-01-24 07:37 | XR_ITS ---
PROCEDURE INFORMATION: Exam: XR Left Forearm Exam date and time: 01/24/2025 7:46 AM Age: 44 years old Clinical indication: Injury or trauma; Fall; Blunt trauma (contusions or hematomas); Arm, lower; Left; Additional info: Fall down flight of stairs, mid back pain, L elbow TECHNIQUE: Imaging protocol: Radiologic exam of the left forearm. Views: 2 views. COMPARISON: CR XR ELBOW LT MIN 3V 01/24/2025 7:45 AM FINDINGS: Bones/joints: Normal. Soft tissues: Normal. IMPRESSION: No acute findings.
--- NOTE | 2025-01-24 07:37 | CT_ITS ---
PROCEDURE INFORMATION: Exam: CT Thoracic Spine Without Contrast Exam date and time: 01/24/2025 8:09 AM Age: 44 years old Clinical indication: Injury or trauma; Fall; Blunt trauma (contusions or hematomas); Additional info: Fall down flight of stairs, mid back pain, L elbow TECHNIQUE: Imaging protocol: Computed tomography of the thoracic spine without contrast. Radiation optimization: All CT scans at this facility use at least one of these dose optimization techniques: automated exposure control; mA and/or kV adjustment per patient size (includes targeted exams where dose is matched to clinical indication); or iterative reconstruction. COMPARISON: CT THORACIC SPINE WO CON 01/24/2025 8:09 AM FINDINGS: Bones/joints: There is preservation of vertebral alignment and vertebral body heights. Facet joints are aligned. No acute fracture. There is no significant osseous encroachment of the spinal canal or neural foraminal narrowing at any level. Soft tissues: Unremarkable. Lungs: Bibasilar subsegmental atelectasis noted. IMPRESSION: No acute fracture. No traumatic subluxation.
--- NOTE | 2025-01-24 07:37 | XR_ITS ---
PROCEDURE INFORMATION: Exam: XR Chest Exam date and time: 01/24/2025 7:40 AM Age: 44 years old Clinical indication: Injury or trauma; Fall; Blunt trauma (contusions or hematomas); Additional info: Fall down flight of stairs, mid back pain, L elbow TECHNIQUE: Imaging protocol: Radiologic exam of the chest. Views: 2 views. COMPARISON: CR XR CHEST PORTABLE 10/02/2023 6:04 AM FINDINGS: Lungs: No evidence of pneumonia or interstitial edema. Pleural spaces: Unremarkable. No pleural effusion. No pneumothorax. Heart/Mediastinum: Unremarkable. No cardiomegaly. Bones/joints: No visible acute fracture. IMPRESSION: 1. No evidence of pneumonia or interstitial edema. 2. No visible acute fracture.
--- NOTE | 2025-01-24 07:37 | CT_ITS ---
PROCEDURE INFORMATION: Exam: CT Cervical Spine Without Contrast Exam date and time: 01/24/2025 8:06 AM Age: 44 years old Clinical indication: Injury or trauma; Fall; Blunt trauma; Additional info: Fall down flight of stairs, mid back pain, L elbow TECHNIQUE: Imaging protocol: Computed tomography of the cervical spine without contrast. Radiation optimization: All CT scans at this facility use at least one of these dose optimization techniques: automated exposure control; mA and/or kV adjustment per patient size (includes targeted exams where dose is matched to clinical indication); or iterative reconstruction. COMPARISON: CT HEAD/BRAIN WO CON 01/24/2025 8:03 AM FINDINGS: Bones: There is straightening of the cervical spine lordosis. There is osseous fusion of the C2 and C3 vertebral bodies and posterior elements. 2 mm anterolisthesis C3 over C4. No evidence of acute fracture. Vertebral body heights are maintained. Degenerative facet hypertrophy, sclerosis and subchondral cyst formation of the left C3-C4 facet joint. Lungs: Imaging through the upper thorax demonstrates nonspecific subtle opacities of the upper lung zones. Soft tissues: Unremarkable. IMPRESSION: 1. No evidence of acute fracture of the cervical spine. 2. Straightening of the cervical spine lordosis may be related to muscular spasm or patient positioning. 3. 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 4. 2 mm anterolisthesis C3 over C4. 5. Degenerative change of the left C3-C4 facet joint. 6. Nonspecific subtle ground-glass opacities of the upper lung zones could be related to an upper respiratory infection. Consider correlation with a chest radiograph.
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
[2025-01-24] MEDS: HYDROCODONE/APAP 5/325 MG TABLET 1 TAB PO (07:46)
[2025-01-24] MEDS: IBUPROFEN 400 MG TABLET 800 MG PO (07:46)
[2025-01-24 07:48] VITALS: BP 108/79; PULSE 67; RESP 16; O2SAT 97
--- NOTE | 2025-01-24 07:52 | PC.NURSE ---
pt to radiology
[2025-01-24 09:12] VITALS: BP 136/93; PULSE 66; RESP 18; TEMP 36.9; O2SAT 97
== END 2025-01-24 09:13 | disposition home or self-care (01) ==
PROVIDERS: Emergency Provider Emergency Medicine; PCP Nurse Practitioner Family
DX: S50.02XA Contusion of left elbow, initial encounter (principal); M54.6 Pain in thoracic spine; R91.8 Other nonspecific abnormal finding of lung field; G93.89 Other specified disorders of brain; W10.8XXA Fall (on) (from) other stairs and steps, initial encounter
CPT/HCPCS: 99285; 70450; 71046; 72125; 72128; 72131; 72170; 73060; 73080; 73090

== ENCOUNTER 2025-02-07 10:43 | Outpatient (CLI) | payer OTHER, SELFPAY | END 2025-02-07 23:59 | disposition home or self-care (01) | LOC: LAB 10:43 | PROVIDERS: PCP Nurse Practitioner Family; Visit Provider Nurse Practitioner Family | DX: I10 Essential (primary) hypertension (principal); R53.83 Other fatigue; Z13.1 Encounter for screening for diabetes mellitus; R63.5 Abnormal weight gain; Z86.19 Personal history of other infectious and parasitic diseases; Z87.898 Personal history of other specified conditions; Z11.4 Encounter for screening for human immunodeficiency virus [HIV]; I73.00 Raynaud's syndrome without gangrene; E55.9 Vitamin D deficiency, unspecified; F41.9 Anxiety disorder, unspecified ==

== ENCOUNTER 2025-02-09 14:04 | Outpatient (CLI) | payer OTHER, SELFPAY ==
[2025-02-09 14:09] LABS: Microscopic, Urine URINE MICROSCOPIC (MICROSCOPIC)
[2025-02-09 14:25] LABS: Appearance,Urine CLEAR (Clear); Bilirubin,Urine Negative (Negative); Blood, Urine Negative (Negative); Color,Urine YELLOW (Yellow); Glucose,Urine (UA) Negative (Negative); Ketones,Urine Negative (Negative); Leukocyte Esterase,Urine Negative (Negative); Nitrate,Urine Negative (Negative); Protein,Urine Negative (Negative); Specific Gravity, Urine 1.015 (1.005-1.030); Urobilinogen,Urine 0.2 EU/dl (0.2)
[2025-02-09 15:11] LABS: Basophils # 0.1 K/mm3 (0-0.2); Eosinophils # 0.1 Kmm3 (0.0-0.4); Eosinophils % 1.7 % (0.1-12.0); Hemoglobin 12.4 g/dL (12.2-16.2); Lymphocytes % 34.1 % (10-50); Mean Corpuscular HGB Conc 33.5 g/dL (31.8-35.4); Mean Corpuscular Hemoglobin 28.9 pg (27.0-31.2); Mean Corpuscular Volume 86.2 fl (81-99); Mean Platelet Volume 9.9 fl (7.4-10.4); Monocytes # 0.4 K/mm3 (0.1-1.0); Monocytes % 7.5 % (1.7-9.3); Neutrophils # 3.2 K/mm3 (1.8-7.8); Neutrophils % 55.4 % (37.0-80.0); Nucleated Red Blood Cells # 0 10^3/uL; Nucleated Red Blood Cells % 0 %; Platelet Count 292 K/mm3 (142-424); Red Blood Count 4.29 M/mm3 (4.20-5.40); Red Cell Distribution Width 12.9 % (11.5-17.5); Red Cell Distribution Width-SD 40.2 fL; White Blood Count 5.8 K/mm3 (4.8-10.8)
[2025-02-09 15:25] VITALS: PULSE 64; PULSE 76
[2025-02-09] MEDS: ALBUTEROL 0.083% 2.5 MG/3 ML NEB IH (15:25)
[2025-02-09 15:52] LABS: Albumin Level 4.5 g/dl (3.5-5.0); Chloride 110 mmol/L (98-107); Potassium 4.1 mmoL/L (3.5-5.1); Sodium 138 mmol/L (136-145)
[2025-02-09 15:54] LABS: Alanine Aminotransferase 16 U/L (12-78); Blood Urea Nitrogen 16 mg/dl (7-17); Estimated Glomerular Filt Rate 90 ml/min (>60); GFR (African American) 109 ML/MIN (>60)
[2025-02-09 15:55] LABS: Albumin/Globulin Ratio 1.7 (1.1-1.8); Alkaline Phosphatase 63 U/L (38-126); Anion Gap 11.1 mEq/L (5-15); Aspartate Amino Transferase 23 U/L (14-36); Bilirubin,Total 0.2 mg/dl (0.2-1.3); Calcium 9.4 mg/dl (8.4-10.2); Carbon Dioxide 21 mmol/L (22.0-30.0); Chol/HDL Ratio 3.2 (1-3.5); Cholesterol 292 mg/dl (140-200); Globulin 2.6 g/dL (1.3-3.2); Glucose 89 mg/dl (74-100); HDL Cholesterol 92 mg/dl (40-60); Iron 105 ug/dL (37-170); Total Protein,Serum 7.1 g/dl (6.3-8.2); Triglycerides 235 mg/dl (30-150); VLDL Cholesterol 47 mg/dL (0-40)
--- NOTE | 2025-02-09 16:00 | MM_ITS ---
PROCEDURE INFORMATION: Exam: MG Bilateral Screening 3D Mammography Exam date and time: 02/09/2025 2:59 PM Age: 44 years old Clinical indication: Screening exam. TECHNIQUE: Imaging protocol: Bilateral Screening tomosynthesis and 2D mammography including computer-aided detection (CAD) when performed. COMPARISON: 1. MG MM DIG MAMM DX UNILAT LT CAD 08/17/2023 2:26 PM 2. MG MM DIG SCREENING MAMM BI W/CAD 07/19/2023 1:19 PM FINDINGS: MAMMOGRAPHY: Breast composition: The breasts are heterogeneously dense, which may obscure small masses. Mass: No suspicious masses. Architectural distortion: None. Calcifications: No suspicious calcifications. Asymmetric density: None. Skin thickening: None. Axillary adenopathy: None. IMPRESSION: No mammographic evidence of malignancy. Annual screening is recommended unless otherwise clinically indicated. ASSESSMENT: BI-RADS Category 1: Negative.
[2025-02-09 16:06] LABS: Direct LDL Cholesterol 136.91 mg/dL (100-129); Total Iron Binding Capacity 324 ug/dL (265-497)
[2025-02-09 16:08] LABS: Erythrocyte Sedimentation Rate 14 mm/hr (0-20)
[2025-02-09 16:11] LABS: C-Reactive Protein 0.7 mg/L (0-4)
[2025-02-09 16:12] LABS: 25-OH Vitamin D, Total 53.4 ng/mL (30-100)
[2025-02-09 16:13] LABS: Free T4 (Free Thyroxine) 0.83 ng/dl (0.78-2.19)
[2025-02-09 16:14] LABS: Hemoglobin A1C 5.2 % (4.0-6.0)
[2025-02-09 16:27] LABS: Thyroid Stimulating Hormone 0.63 uIU/mL (0.465-4.68)
[2025-02-09 16:31] LABS: Ferritin 28.3 ng/ml (6.24-137)
[2025-02-09 16:38] LABS: HIV Combo NEGATIVE (Negative)
[2025-02-09 16:45] LABS: Hepatitis C Ab Qual. W/ RFX REACTIVE (Negative)
== END 2025-02-09 23:59 | disposition home or self-care (01) ==
LOC: RT 14:04
PROVIDERS: PCP Nurse Practitioner Family; Visit Provider Nurse Practitioner Family
DX: Z12.31 Encounter for screening mammogram for malignant neoplasm of breast (principal); R06.00 Dyspnea, unspecified; I73.00 Raynaud's syndrome without gangrene; E55.9 Vitamin D deficiency, unspecified; R63.5 Abnormal weight gain; I10 Essential (primary) hypertension; R53.83 Other fatigue; F41.9 Anxiety disorder, unspecified; Z87.898 Personal history of other specified conditions; Z86.19 Personal history of other infectious and parasitic diseases; Z11.4 Encounter for screening for human immunodeficiency virus [HIV]; Z13.1 Encounter for screening for diabetes mellitus
CPT/HCPCS: 36415; 77063; 77067; 80053; 80061; 81001; 82306; 82728; 83036; 83540; 83550; 84156; 84439; 84443; 85025; 85651; 86140; 86803; 87086; 87389; 87522; 94010; 94640; J7613

== ENCOUNTER 2025-03-26 15:48 | Outpatient (CLI) | payer OTHER, SELFPAY ==
--- OUTSIDE RECORDS SUMMARY | 2025-01-30 14:07 | XMS_ITS | Encounter Summary ---
Author Organization [employer] Address [address] [place] [address] Care Team Providers Care Manager Customs Name Role Phone [facility], Provider Not In The System Primary Care Provider Unavailable Reason for Visit * Reason Comments Arm Pain Pt fell down steps l ast week.Pt complains of elbow pain on ROM. Encounter Details Date Type Department Care Team (Late st Contact Info) Description 01/30/2025 2:07 PM EDT - 01/30/2025 3:38 PM EDT Emergency [facility] Emergency Department [address] [place] [address] Agus Oakley MD [address] [place] [address] Left elbow pain (Primary Dx) Discharge Disposition: Home or Self Care Social History Tobacco Use Types Packs/Day Years Used Date Smoking Tobacco: Never Assessed Comments Unknown Sex and Gender Information Value Date Recorded Sex Assigned at Female 04/11/2022 5:39 PM CDT Legal Sex Female 5:39 PM CDT Gender Identity Female 04/11/2022 5:39 PM CDT Sexual Orientation Not on file documented as of this encounter Last Filed Vital Signs Vital Sign Reading Time Taken Comments Blood Pressure 135/84 01/30/2025 2:19 PM EDT Pulse 75 01/30/2025 2:19 PM EDT Temperature 36.9 C (98.4 F) 01/30/2025 2:13 PM EDT Respiratory Rate 16 01/30/2025 2:13 PM EDT Oxygen Saturation 97% 01/30/2025 2:19 PM EDT Inhaled Oxygen Concentration - - Weight 70.3 kg (155 lb) 01/30/2025 2:13 PM EDT Height - - Body Mass Index - - documented in this encounter Discharge Instructions * Attachments The following attachments cannot be sent through Care Everywhere. * Joint Pain [id number] (Marshallese) documented in this encounter ED Notes * Agus Oakley MD - 01/30/2025 2:13 PM EDT Subjective Chief Complaint: Arm Pain (Pt fell down steps last week.Pt complains of elbow pain on ROM.) Well-appearing 44-year-old female presents approximately a week after reportedly falling down some steps and injuring her left elbow. The patient says at that time she had a significant amount of swelling with a large hematoma to the left elbow that was x-rayed but no obvious injuries were appreciated. She says since that time she has had persistent pain and tenderness but today in his become more painful. Patient History No past medical history on file. No past surgical history on file. No family history on file. Social History Tobacco Use Smoking status: Not on file Smokeless tobacco: Not on file Substance Use Topics Alcohol use: Not on file I reviewed the HPI, ROS and PFSH documentation recorded by others in the medical record and supplemented my note as needed. Review of Systems Review of Systems Musculoskeletal: Positive for arthralgias. Physical Exam ED Triage Vitals Encounter Vitals Group BP Systolic BP Percentile Diastolic BP Percentile Pulse Resp Temp Temp src SpO2 Weight Height Head Circumference Peak Flow Pain Score Pain Loc Pain Education Exclude from Growth Chart Physical Exam Vitals reviewed. Constitutional: Appearance: She is well-developed. HENT: Head: Normocephalic and atraumatic. Eyes: Pupils: Pupils are equal, round, and reactive to light. Cardiovascular: Rate and Rhythm: Normal rate and regular rhythm. Pulmonary: Effort: Pulmonary effort is normal. Abdominal: Palpations: Abdomen is soft. Tenderness: There is no abdominal tenderness. Musculoskeletal: Left elbow: Tenderness present. Cervical back: Normal range of motion. Right lower leg: No edema. Left lower leg: No edema. Neurological: General: No focal deficit present. Mental Status: She is alert. Psychiatric: Mood and Affect: Mood normal. Neurological Exam Mental Status Alert. Cranial Nerves CN III, IV, : Pupils equal round and reactive to light bilaterally. Ortho Exam ED Course & MDM Medications - No data to display No results found for this or any previous visit. XR elbow 3 views min left ED Interpretation ED Xray Interpretation: No FX, dislocation, FB, or obvious abnormalities per EP interpretation. Note: A radiologist is not available within a reasonable amount of time to interpret images associated with this encounter. Preliminary radiographic interpretation was performed by me and the patientwas advised that this was only a preliminary read and may reveal additional findings once reviewed by a radiologist. I asked the patient to ensure that we had their phone number on file so in the event we needed to call them back with a radiology read discrepancy we would have an ability to do so. Procedures Medical Decision Making Presents with Left elbow pain after fall. X-ray reveals on my interpretation I found no evidence ofa fracture, specifically none where the patient has her greatest degree of point tenderness. Discussed discharge instructions with patient and return precautions. Adhesive capsulitis precautions discussed. No overt evidence of compartment syndrome or supracondylar fracture. Distally NVI intact withbrisk capillary refill. Patient is well-appearing, in no apparent distress, and vital signs stable for discharge home. Return precautions for occult fracture and return for repeat imaging if needed discussed. The patient was advised that the radiologist has not officially read the films but if we in fact find a discrepancy she would receive a call. She voiced understanding and was discharged in stable condition. Amount and/or Complexity of Data Reviewed Radiology: ordered and independent interpretation performed. Assessment & Plan Clinical Impression Diagnosis Comment Added By Time Added Left elbow pain Agus Oakley MD 01/30/2025 3:34 PM Disposition Discharge [1] - 01/30/2025 3:34 PM New Prescriptions No medications on file Contact information for follow-up Provider Not In The System MD Belén Relationship: PCP - [facility] [id number] Next Steps: Follow up Electronically Signed By Agus Oakley MD 01/30/25 1537 documented in this encounter Plan of Treatment Not on file documented as of this encounter Procedures Procedure Name Priority Date/Time Associated Diagnosis Comments XR ELBOW 3 VIEWS MIN LEFT STAT 01/30/2025 2:44 PM EDT documented in this encounter Results * XR elbow 3 views min left (01/30/2025 2:44 PM EDT) Anatomical Region Laterality Modality Elbow, Arm, Forearm X-Ray 01/30/2025 3:56 PM EDT Impressions 01/30/2025 4:09 PM EDT No acute fracture. Images reviewed, interpreted, and dictated by Dr. Romel Day. Transcribed by Rojas Madrid PA-C. Narrative 01/30/2025 4:09 PM EDT LEFT ELBOW SERIES HISTORY: Left elbow pain, trauma. FINDINGS: Four views show no evidence of an acute, displaced fracture or dislocation of the visualized bony architecture. The joint spaces appear normal. No soft tissue abnormality is seen. No effusion identified. Procedure Note Romel Day MD - 01/30/2025 LEFT ELBOW SERIES HISTORY: Left elbow pain, trauma. FINDINGS: Four views show no evidence of an acute, displaced fracture or dislocation of the visualized bony architecture. The joint spaces appear normal. No soft tissue abnormality is seen. No effusion identified. IMPRESSION: No acute fracture. Images reviewed, interpreted, and dictated by Dr. Romel Day. Transcribed by Rojas Madrid PA-C. Agus Oakley MD IMG DIAGNOSTIC IMAGING ORDERABL ES Final Result documented in this encounter Visit Diagnoses Diagnosis Left elbow pain- Primary Pain in joint, upper arm documented in this encounter Care Teams Manager Customs Relationship Specialty Start Date End Date [facility], Provider Not In The System, [place] [address] PCP - General 01/30/25 documented as of this encounter
[2025-03-26 13:59] LABS: Coronavirus 19, PCR Not Detected (NotDetected); Human Rhinovirus Not Detected (NotDetected); Influenza A, PCR Not Detected (NotDetected); Influenza B, PCR Not Detected (NotDetected); Respiratory Syncytial Virus Not Detected (NotDetected)
--- OUTSIDE RECORDS SUMMARY | 2025-03-26 15:51 | XMS_ITS | Clinical Summary ---
Author Organization [employer] Address [address] [place] [address] Care Team Providers Care Residential Construction Instructor Name Role Phone [facility], Provider Not In The System Primary Care Provider Unavailable Allergies No known active allergies Medications No known medications Encounters Date Type Department Care Team Description 01/30/2025 2:07 PM EDT - 01/30/2025 3:38 PM EDT Emergency [facility] Emergency Department [address] [place] [address] Agus Oakley MD Left elbow pain (Primary Dx) Discharge Disposition: Home or Self Care 01/30/2025 Travel from Last 3 Months Social History Tobacco Use Types Packs/Day Years Used Date Smoking Tobacco: Never Assessed Comments Unknown Sex and Gender Information Value Date Recorded Sex Assigned at Female 04/11/2022 5:39 PM CDT Legal Sex Female 5:39 PM CDT Gender Identity Female 04/11/2022 5:39 PM CDT Sexual Orientation Not on file Last Filed Vital Signs Vital Sign Reading [...] - - Body Mass Index - - Plan of Treatment Health Maintenance Due Date Last Done Comments CT Colonography 1978 Colonoscopy 1978 Colorectal Cancer Screening 1978 FOBT/FIT 1978 Fit-DNA (Cologuard) 1978 Sigmoidoscopy 1978 Depression Screening (12+) 1990 Tobacco Cessation Counseling and Screening (12+) 1990 HIV Screening 1993 Hepatitis C Screening 1996 Pap Smear 12/15/1999 DTAP/TDAP/TD VACCINES (2 - T d or Tdap) 07/08/2012 07/08/2002 Breast Cancer Screening 2018 Lipid Panel 12/15/2023 COVID-19 VACCINE ( - 2023-2 5 season) 2024 09/23/2021 Influenza Vaccine (Season Ended) 2025 Pneumococcal Vaccine: 0-49 Years Aged Out No longer eligible based on patient's age to complete this topic Procedures Procedure Name Priority Date/Time Associated Diagnosis Comments XR ELBOW 3 VIEWS MIN LEFT STAT 01/30/2025 2:44 PM EDT from Last 3 Months Results * XR elbow 3 views min [...] Romel Day. Transcribed by Rojas Madrid PA-C. us Agus Oakley MD IMG DIAGNOSTIC IMAGING ORDERABL ES Final Result from Last 3 Months Insurance [facility] Care Teams Residential Construction Instructor Relationship Specialty Start Date End Date [facility], Provider Not In The System, [place] [address] PCP - General 01/30/25
--- OUTSIDE RECORDS SUMMARY | 2025-03-26 15:51 | XMS_ITS | Clinical Summary ---
Author Organization Healthcare Address [address] [place] [address] Care Team Providers Care Shoe Fitter Name Role Phone Autumn Khanna APRN Primary Care Provider [phone] Allergies No known active allergies Social History Tobacco Use Types Packs/Day Years Used Date Smoking Tobacco: Never Assessed Comments Unknown Sex and Gender Information Value Date Recorded Sex Assigned at Not on file Legal Sex Female 8:20 PM EDT Gender Identity Not on file Sexual Orientation Not on file Last Filed Vital Signs Vital Sign Reading Time Taken Comments Blood Pressure 126/81 12/21/2024 3:04 PM EDT Pulse 72 12/21/2024 3:04 PM EDT Temperature 37.1 C (98.8 F) 12/21/2024 3:04 PM EDT Respiratory Rate 18 12/21/2024 3:04 PM EDT Oxygen Saturation 100% 12/21/2024 3:04 PM EDT Inhaled Oxygen Concentration - - Weight - - Height - - Body Mass Index - - Plan of Treatment Health Maintenance Due Date Last Done Comments [facility]-Depression Screening 1978 [facility]-/Child/Adol SDOH Screenings 1978 [facility]- SDOH Screenings 1996 [facility]-Adult SDOH Screenings 1996 [facility]-Hepatitis B Vaccines (1 of 3 - 19+ 3-dose series) 1997 [facility]-DTaP,Tdap,and Td Vaccine s (1 - Tdap) 07/09/2002 07/08/2002 [facility]-Pap Smear 02/22/2007 02/23/2004 [facility]-Cervical Cancer Screening 02/22/2009 [facility]-HPV/Cotest 02/22/2009 02/23/2004 CT Colonography 12/15/2023 Colonoscopy 12/15/2023 FIT-DNA 12/15/2023 FIT 12/15/2023 FOBT 12/15/2023 Sigmoidoscopy 12/15/2023 [facility]-Colorectal Cancer Screening 12/15/2023 [id number] Vaccine (2 - season) 2024 09/23/2021 UK[facility]-Influenza Vaccine (Seaso n Ended) 2025 [facility]-Zoster Vaccines (1 of 2) 2028 [facility]-HIV Screening Completed 09/05/2018, 11/06/2017 [facility]-Hepatitis C Screening Completed 2017, 09/05/2018, 11/06/2017 HPV Vaccines Aged Out No longer eligi ble based on patient's age to complete this topic UKY-HIB Vaccines Aged Out No longer e ligible based on patient's age to complete this topic [facility]-Hepatitis A Vaccines Aged Out No longer eligible based on patient's age to complete this topic [facility]Y-IPV Vaccines Aged Out No longer e ligible based on patient's age to complete this topic UKY-Pneumococcal Vaccine: Pediatrics (0 to 5 Years) and At-Risk Patients (6 to 49 Years) Aged Out No longer eligible b ased on patient's age to complete this topic UKY-Rotavirus Vaccines Aged Out No lo nger eligible based on patient's age to complete this topic Procedures Procedure Name Priority Date/Time Associated Diagnosis Comments HEPATITIS C VIRUS (HCV) QUANTITATIVE PCR Routine 09/05/2018 3:34 PM EST HIV 1/2 ANTIBODY/ANTIGEN SCREEN WITH REFLEX TO HIV I/II DIFFERENTIATION Routine 09/05/2018 3:34 PM EST CYTO DATA CONVERSION Routine 02/23/2004 12:00 AM EDT from Last 3 Months or Most Recently Relevant to Health Maintenance Results * Hepatitis C Virus (HCV) Quantitative PCR (09/05/2018 3:34 PM EST) Hepatitis C Virus (HCV) Quantitative Viral Load Log Result 4.50 SUNQUEST Hepatitis C Virus (HCV) Quantitative IU/mL Result 31,565 SUNQUEST HCV Quantitative PCR Comment Reference Interval: Not Detected, Log IU/mL <1.08, IU/mL <12 SUNQUEST Comment: The Acuna M2000 HCV test is a Real Time in vitro nucleic acid amplification test for the quantitation of Hepatitis C Viral (HCV) RNA in human serum in HCV-infected individuals. It is intended for use as an aid in the management of HCV-infected individuals undergoing anti-viral therapy. The dynamic range for this test is log10 = 1.08 to 8.00and/or 12 to 100,000,000 IU/mL. The limit of detection (LOD) for this assay is 12 IU/mL and the limit of quantitation (LOQ) is 12 IU/mL. This assay is FDA approved for clinical use. 09/05/2018 3:34 PM EST 09/05/2018 3:40 PM EST Narrative SUNQUEST - 09/10/2018 3:52 AM EST HCV RNA DETECTED HCV RNA DETECTED Historical Provider MD LAB BLOOD ORDERABLES Karol l Result Performing Organization Address City/[facility] Co de Phone Number SUNKANDY * HIV 1 & 2 Antibody/Antigen Screen (09/05/2018 3:34 PM EST) HIV 1 Result NONREACTIVE Screening for HIV 1 and 2 antibodies is NONREACTIVE. No confirmatory testing is required. SUNQUEST 09/05/2018 3:34 PM EST 09/05/2018 3:40 PM EST Historical Provider LAB BLOOD ORDERABLES Karol l Result Performing Organization Address [facility] Co de Phone Number SUNQUEST * Cytology (02/23/2004 12:00 AM EDT) 02/23/2004 02/24/2004 11: 40 AM EDT Narrative SUNQUEST - 03/10/2004 1:25 PM EDT [facility] MR #: [id number] [facility] [address] [place], [place] [address] 1980 (Age: 23) FW Collect Date: 02/23/2004 00:00 Receipt Date: 02/24/2004 11:40 Page 1 DEPARTMENT OF PATHOLOGY AND LABORATORY MEDICINE CYTOPATHOLOGY REPORT Email: [email or web address] [phone] ATTENDING MD/Practitioner: Jamey Stoo MD. Service: OBE Location: OBE OTHER MD(S): Jamey Dias CNM Reported: 03/10/2004 13:25 Collected: 02/23/2004 00:00 INTERPRETATION THIN PREP (CERVICAL/VAGINAL): NEGATIVE FOR INTRAEPITHELIAL LESION OR MALIGNANCY. PARAKERATOSIS. SATISFACTORY FOR EVALUATION; ENDOCERVICAL/TRANSFORMATION ZONE COMPONENT ABSENT/INSUFFICIENT. Slide scanned and imaged by [employer] ThinPrep Imaging System with manual review of all selected chacon. Cervical/vaginal cytology is a screening test primarily for squamous cancers and precursors and has associated false negative and positive results. New technologies such as liquid based sampling may decrease but will not eliminate all false negative results. Regular (generally annual) sampling and follow-up of unexplained clinical signs and symptoms are recommended to minimize false negative results (see CPR report, 1999). Electronically Signed Out KEVIN Leonardo(ASCP) Eder Bernal MD Cervical cytology is a screening test primarily for squamous cancers and precursors and has associated false negative and positive results. New technologies such as liquid based sampling may decrease but will not eliminate all false negative results. Regular screening and follow-up of unexplained clinical signs and symptoms are recommended to minimize false negative results. Please see the ASCCP website (www.asccp.org) for followup recommendations. If HPV testing was requested, correlation with the results is suggested (please call Microbiology at [phone] for results). CLINICAL INFORMATION: Menstrual History: : Second trimester Date of Last Menstrual Period: 10/20/03 Other Clinical Conditions: If ASCUS and > 24 years of age, HPV/DNA testing requested. SPECIMEN DESCRIPTION: A: THIN PREP (CERVICAL/VAGINAL) THIN PREP PROCESS CELLULAR ENHANCEMENT ICD: 622.2 LEUKOPLAKIA OF CERVIX (HYPERKERATOSIS CERVIX) V76.2 CERVIX, SPECIAL SCREENING FOR MALIGNANT NEOPLASM F: A; RT IMAGE 50383, 21061 C\V (PO) SNOMED CODES: A; [id number] In cases where a pathologist has signed out the report, the service has been rendered in part by a resident. The signing pathologist has performed and is responsible for the reported pathologic evaluation. us Historical Provider MD LAB PATHOLOGY ORDERABLES Final Result SUNQUEST from Last 3 Months or Most Recently Relevant to Health Maintenance Insurance [employer] Care Teams Shoe Fitter Relationship Specialty Start Date End Date Autumn Khanna APRN [address] [place] [address] PCP - General 11/21/24
--- OUTSIDE RECORDS SUMMARY | 2025-03-26 15:51 | XMS_ITS | Encounter Summary ---
Author Organization [employer] Address [address] [place] [address] Care Team Providers Care Warehouse Team Member Name Role Phone Carlos, Provider Not In The System Primary Care Provider Unavailable Encounter Details Date Type Department Care Team (Late st Contact Info) Description 08/15/2021 Transcribed Document [facility] Family Medicine [place] [address] ProviderLasha MD [address] [place] [address] Social History Tobacco Use Types Packs/Day Years Used Date Smoking Tobacco: Never Assessed Comments Unknown Sex and Gender Information Value Date Recorded Sex Assigned at Female 04/11/2022 5:39 PM CDT Legal Sex Female 5:39 PM CDT Gender Identity Female 04/11/2022 5:39 PM CDT Sexual Orientation Not on file documented as of this encounter Miscellaneous Notes * Cerner Conversion Note - Historical ProviderMD - 08/15/2021 10:00 PM CDT ED Discharge Entered On: 08/16/2021 2:09 EDT Performed On: 08/15/2021 22:00 EDT by SALLY SEYMOUR, checker Process Patient Disposition : AMA/Elope/LWBS SALLY SEYMOUR, RN - 08/16/2021 2:08 EDT LWBS/Elopement/AMA Patient Left Prior To Medical Screening : Unseen Patient Elopement : Yes SALLY SEYMOUR RN - 08/16/2021 2:08 EDT documented in this encounter Plan of Treatment Not on file documented as of this encounter Visit Diagnoses Not on filedocumented in this encounter Care Teams Warehouse Team Member Relationship Specialty Start Date End Date Belén, Provider Not In The System, [place] [address] PCP - General 01/30/25 documented as of this encounter
--- OUTSIDE RECORDS SUMMARY | 2025-03-26 15:51 | XMS_ITS | Encounter Summary ---
Author Organization [facility] Address [address] [place] [address] Care Team Providers Care Yarn Examiner Name Role Phone [facility], Provider Not In The System Primary Care Provider Unavailable Encounter Details Date Type Department Care Team (Latest Contact Info) Description 01/30/2025 Travel Social History Tobacco Use Types Packs/Day Years Used Date Smoking Tobacco: Never Assessed Comments Unknown Sex and Gender Information Value Date Recorded Sex Assigned at Female 04/11/2022 5:39 PM CDT Legal Sex Female 5:39 PM CDT Gender Identity Female 04/11/2022 5:39 PM CDT Sexual Orientation Not on file documented as of this encounter Plan of Treatment Not on file documented as of this encounter Visit Diagnoses Not on filedocumented in this encounter Care Teams Yarn Examiner Relationship Specialty Start Date End Date Belén, Provider Not In The System, [place] [address] PCP - General 01/30/25 documented as of this encounter
--- OUTSIDE RECORDS SUMMARY | 2025-03-26 15:51 | XMS_ITS | Referral Summary ---
Author Organization [employer] Address [address] [place] [address] Care Team Providers Care Bar Porter Name Role Phone [facility], Provider Not In The System Primary Care Provider Unavailable Encounters Date Type Department Care Team Description 01/30/2025 Travel 01/30/2025 2:07 PM EDT - 01/30/2025 3:38 PM EDT Emergency [facility] Emergency Department [address] [place] [address] Agus Oakley MD Left elbow pain (Primary Dx) Discharge Disposition: Home or Self Care from Last 3 Months Allergies No known active allergies Medications No known medications Social History Tobacco Use Types Packs/Day Years [...] Mass Index - - Plan of Treatment Not on file Procedures Procedure Name Priority Date/Time Associated Diagnosis [...] Final Result [facility] Care Teams Bar Porter Relationship Specialty Start Date End Date [facility], Provider Not In The System, [place] [address] PCP - General 01/30/25
== END 2025-03-26 23:59 | disposition home or self-care (01) ==
LOC: LAB.DROPOF 15:49
PROVIDERS: PCP Nurse Practitioner Family; Visit Provider Nurse Practitioner Family
DX: R05.9 Cough, unspecified (principal)
CPT/HCPCS: 87631

== ENCOUNTER 2025-05-20 14:46 | Outpatient (CLI) | payer OTHER, SELFPAY ==
[2025-05-20 17:30] LABS: Coronavirus 19, PCR Not Detected (NotDetected); Influenza A, PCR Not Detected (NotDetected); Influenza B, PCR Not Detected (NotDetected)
--- OUTSIDE RECORDS SUMMARY | 2025-05-21 11:08 | XMS_ITS | Clinical Summary ---
Author Organization Healthcare Address [address] [place] [address] Care Team Providers Care Product Development Engineer Name Role Phone Autumn Khanna APRN Primary Care Provider [phone] Allergies No known active allergies Social History [...] Date Last Done Comments [facility]-Depression Screening 1978 [facility]-Infant/Child/Adol SDOH Screenings 1978 [facility]Y- SDOH Screenings 1996 [facility]-Adult SDOH Screenings 1996 [facility]Y-Hepatitis B Vaccines (1 of 3 - 19+ 3-dose series) 1997 [facility]Y-DTaP,Tdap,and Td Vaccine s (1 - Tdap) 07/09/2002 07/08/2002 UKY-Pap Smear 02/22/2007 02/23/2004 [facility]-Cervical Cancer Screening 02/22/2009 [facility]Y-HPV/Cotest 02/22/2009 02/23/2004 CT Colonography 12/15/2023 Colonoscopy 12/15/2023 FIT-DNA 12/15/2023 FIT 12/15/2023 FOBT 12/15/2023 Sigmoidoscopy 12/15/2023 UKY-Colorectal Cancer Screening 12/15/2023 [id number] Vaccine ( season) 2024 09/23/2021 UKY-Influenza Vaccine (#1) 2025 UKY-Zoster Vaccines (1 of 2) 2028 [...] ORDERABLES Karol l Result Performing Organization Address City/[facility] Co de Phone Number SUNKADNY * HIV 1 & 2 Antibody/Antigen Screen (09/05/2018 3:34 PM EST) HIV 1 Result NONREACTIVE Screening for HIV 1 and 2 antibodies is NONREACTIVE. No confirmatory testing is required. SUNQUEST 09/05/2018 3:34 PM EST 09/05/2018 3:40 PM EST Historical Provider LAB BLOOD ORDERABLES Karol l Result Performing Organization Address City/[facility] Co de Phone Number SUNQUEST * Cytology (02/23/2004 12:00 AM EDT) 02/23/2004 02/24/2004 11: 40 AM EDT Narrative SUNQUEST - 03/10/2004 1:25 PM EDT [facility] MR #: [id number] [facility] [address] [place], [place] [address] 1980 (Age: 23) FW Collect Date: 02/23/2004 00:00 Receipt Date: 02/24/2004 11:40 Page 1 DEPARTMENT OF PATHOLOGY AND LABORATORY MEDICINE CYTOPATHOLOGY REPORT Email: [email or web address] [phone] ATTENDING MD/Practitioner: Jamey Soto MD. Service: OBE Location: OBE OTHER MD(S): Jamey Dias CNM Reported: 03/10/2004 13:25 Collected: 02/23/2004 00:00 INTERPRETATION THIN PREP (CERVICAL/VAGINAL): NEGATIVE FOR INTRAEPITHELIAL LESION OR MALIGNANCY. PARAKERATOSIS. SATISFACTORY FOR EVALUATION; ENDOCERVICAL/TRANSFORMATION ZONE COMPONENT ABSENT/INSUFFICIENT. Slide scanned and imaged by [employer] ThinPrep Imaging System with manual review of [...] CPR report, 1999). Electronically Signed Out KEVIN Leonardo(ASC) Eder Bernal MD Cervical cytology is a [...] results is suggested (please call Microbiology at [phone] for results). CLINICAL INFORMATION: Menstrual History: : Second trimester Date of Last Menstrual Period: 10/20/03 Other Clinical Conditions: If ASCUS and > 24 years of age, HPV/DNA testing requested. SPECIMEN DESCRIPTION: A: THIN PREP (CERVICAL/VAGINAL) THIN PREP PROCESS CELLULAR ENHANCEMENT ICD: 622.2 LEUKOPLAKIA OF CERVIX (HYPERKERATOSIS CERVIX) V76.2 CERVIX, SPECIAL SCREENING FOR MALIGNANT NEOPLASM F: A; RT IMAGE 64250, 02185 C\V (PO) SNOMED CODES: A; [id number] In cases where a pathologist has signed out the report, the service has been rendered in part by a resident. The signing pathologist has performed and is responsible for the reported pathologic evaluation. us Historical Provider MD LAB PATHOLOGY ORDERABLES Final Result SUNQUEST from Last 3 Months or Most Recently Relevant to Health Maintenance Insurance [employer] MEDICAID Care Teams Product Development Engineer Relationship Specialty Start Date End Date Autumn Khanna APRN [address] [place] [address] PCP - General 11/21/24
--- OUTSIDE RECORDS SUMMARY | 2025-05-21 11:08 | XMS_ITS | Patient Health Record ---
Author Organization [facility] Address [address] [place] [address] Care Team Providers Care Chief Gauger Name Role Phone VISH ELLIS Primary Care Provider Reason For Referral No Information Medications Medication SIG (Take, Route, Frequency, Duration) Notes Start Date End Date Status ProAir HFA CFC free 90 mcg/inh 2 (two) inhalation 4 inhalation 4 times a day; Duration: thirty 11/11/2015 Active PROzac 20 mg 3 (three) tablet(s) orally once a day in the morning; Duration: one 11/10/2015 Active busPIRone HCl 5 mg ; Duration: thirty 11/10/2015 0 Active Immunizations Vaccine Route Administration Date Status Comme nts TIG (Tetanus immune globulin ), human, for IM use Unknown Administered Plan Of Treatment No Information Insurance Providers Payer Name Payer Address Payer Phone Subscriber Number Group Number Insured Name Patient Relationship to Insured Coverage Start Date Coverage End Date [facility] MED[place] [address] [address] [place] [address] [id number] Edel Walters Self - patient is the insured Medical (General) History Surgical History Surgery Date(Month/Year) Hysterectomy
== END 2025-05-20 23:59 | disposition home or self-care (01) ==
LOC: LAB.DROPOF 05-21 11:06
PROVIDERS: PCP Nurse Practitioner Family; Visit Provider Nurse Practitioner Family
DX: H92.09 Otalgia, unspecified ear (principal); R53.83 Other fatigue; R05.8 Other specified cough; R11.0 Nausea
CPT/HCPCS: 87631

== ENCOUNTER 2025-09-04 11:01 | Outpatient (CLI) | payer OTHER, SELFPAY ==
[2025-09-04 19:10] LABS: Coronavirus 19, PCR Not Detected (NotDetected); Influenza A, PCR Not Detected (NotDetected); Influenza B, PCR Not Detected (NotDetected)
--- OUTSIDE RECORDS SUMMARY | 2025-09-07 11:30 | XMS_ITS | Encounter Summary ---
Author Organization [employer] ([place], [place], [place], [place], [place]) Address [address] [place] [address] Care Team Providers Care Salesperson Florist Supplies Name Role Phone Carlos, Provider Not In The System Primary Care Provider Unavailable Encounter Details Date Type Department Care Team (Late st Contact Info) Description 08/15/2021 Transcribed Document [facility] [place] [facility] [place] [address] ProviderLasha MD [address] [place] [address] Social History Tobacco Use Types Packs/Day Years [...] Performed On: 08/15/2021 22:00 EDT by SALLY SEYMOUR machine tool operator Process Patient Disposition : AMA/Elope/LWBS SALLY SEYMOUR RN - 08/16/2021 2:08 EDT LWBS/Elopement/AMA Patient Left Prior To Medical Screening : Unseen Patient Elopement : Yes SALLY SEYMOUR RN - 08/16/2021 2:08 EDT documented in this encounter Plan of Treatment Not on file documented as of this encounter Visit Diagnoses Not on filedocumented in this encounter Care Teams Salesperson Florist Supplies Relationship Specialty Start Date End Date [facility], Provider Not In The System, [place] [address] PCP - General 01/30/25 documented as of this encounter
--- OUTSIDE RECORDS SUMMARY | 2025-09-07 11:30 | XMS_ITS | Clinical Summary ---
Author Organization [employer] ([place], [place], [place], [place], [place]) Address [address] [place] [address] Care Team Providers Care Artillery Or Naval Gunfire Observer Name Role Phone [facility], Provider Not In The System MD Primary Care Provider Unavailable Allergies No known active allergies Medications traZODone (DESYREL) 100 MG tablet Take 1 tablet (100 mg total) by mouth nightly. 03/24/2025 Active sertraline (ZOLOFT) 100 MG tablet Take 1 tablet (100 mg total) by mouth daily. 03/24/2025 Active rosuvastatin (CRESTOR) 20 MG tablet Take 1 tablet (20 mg total) by mouth nightly. 03/24/2025 Active prazosin (MINIPRESS) 1 MG capsule Take 1 capsule (1 mg total) by mouth nightly. 03/24/2025 Active levocetirizine (XYZAL) 5 MG tablet Take 1 tablet (5 mg total) by mouth daily. 03/26/2025 Active busPIRone (BUSPAR) 15 MG tablet Take 1 tablet (15 mg total) by mouth 2 (two) times daily. 03/24/2025 Active azelastine (ASTELIN) 137 mcg (0.1 %) nasal spray 2 (two) times daily. 03/26/2025 Active amLODIPine (NORVASC) 5 MG tablet Take 1 tablet (5 mg total) by mouth daily. 02/11/2025 Active Active Problems No known active problems Family History Medical History Relation Name Comments Arthritis Other Diabetes Other Hypertension Other Relation Name Status Comments Other Social History Tobacco Use Types Packs/Day Years Used Date Smoking Tobacco: Never Smokeless Tobacco: Never Tobacco Cessation:Counseling Given: Not Answered Alcohol Use Standard Drinks/Week Comments Never 0 (1 standard drink = 0.6 oz pur e alcohol) Comments Unknown Sex and Gender Information Value Date Recorded Sex Assigned at Female 04/11/2022 5:39 PM CDT Legal Sex Female 5:39 PM CDT Gender Identity Female 04/11/2022 5:39 PM CDT Sexual Orientation Not on file Last Filed Vital Signs Vital Sign Reading Time Taken Comments Blood Pressure 138/83 05/04/2025 2:52 PM EDT Pulse 66 05/04/2025 2:52 PM EDT Temperature 36.9 C (98.4 F) 01/30/2025 2:13 PM EDT Respiratory Rate 16 01/30/2025 2:13 PM EDT Oxygen Saturation 97% 01/30/2025 2:19 PM EDT Inhaled Oxygen Concentration - - Weight 75.8 kg (167 lb) 05/04/2025 2:52 PM EDT Height 157.5 cm (5' 2 ) 05/04/2025 2:52 PM EDT Body Mass Index 30.54 05/04/2025 2:52 PM EDT Plan of Treatment Health Maintenance Due Date Last Done Comments CT Colonography 1978 Colonoscopy 1978 Colorectal Cancer Screening 1978 FOBT/FIT 1978 Fit-DNA (Cologuard) 1978 Sigmoidoscopy 1978 Depression Screening (12+) 1990 HIV Screening 1993 Hepatitis C Screening 1996 Pap Smear 12/15/1999 DTAP/TDAP/TD VACCINES (2 - T d or Tdap) 07/08/2012 07/08/2002 Breast Cancer Screening 2018 Lipid Panel 12/15/2023 COVID-19 VACCINE (2 - 2024-2 6 season) 2025 09/23/2021 Influenza Vaccine (#1) 2025 Tobacco Cessation Counseling and Screening (12+) 05/05/2026 05/05/2025 Pneumococcal Vaccine: 0-49 Years Aged Out No longer eligible based on patient's age to complete this topic Insurance AETNA [employer] [place] Care Teams Artillery Or Naval Gunfire Observer Relationship Specialty Start Date End Date [facility], Provider Not In The System, [place] [address] PCP - General 01/30/25
--- OUTSIDE RECORDS SUMMARY | 2025-09-07 11:30 | XMS_ITS | Referral Summary ---
Author Organization [employer] ([place], [place], [place], [place], [place]) Address [address] [place] [address] Care Team Providers Care Head Scorer Name Role Phone [facility], Provider Not In The System MD Primary [...] Active Active Problems No known active problems Social History Tobacco Use Types Packs/Day Years [...] 05/04/2025 2:52 PM EDT Plan of Treatment Not on file Insurance AETNA [facility] Care Teams Head Scorer Relationship Specialty Start Date End Date [facility], Provider Not In The System, [place] [address] PCP - General 01/30/25
--- OUTSIDE RECORDS SUMMARY | 2025-09-07 11:30 | XMS_ITS | Clinical Summary ---
Author Organization Healthcare Address [address] [place] [address] Care Team Providers Care User Interface Engineer Name Role Phone Autumn Khanna APRN Primary Care Provider [phone] Allergies No known active allergies Social History [...] 12/15/2023 Sigmoidoscopy 12/15/2023 [facility]-Colorectal Cancer Screening 12/15/2023 [id number] Vaccine ( season) 2025 09/23/2021 [facility]-Influenza Vaccine (#1) 2025 [facility]-Zoster Vaccines [...] EST HCV RNA DETECTED HCV RNA DETECTED [facility] Provider LAB BLOOD ORDERABLES Final R esult Performing Organization Address City/[facility] Co de Phone Number SUNKANDY * HIV 1 & 2 Antibody/Antigen Screen (09/05/2018 3:34 PM EST) HIV 1 Result NONREACTIVE Screening for HIV 1 and 2 antibodies is NONREACTIVE. No confirmatory testing is required. SUNQUEST 09/05/2018 3:34 PM EST 09/05/2018 3:40 PM EST [facility] Provider LAB BLOOD ORDERABLES Final R esult SUNQUEST * Cytology (02/23/2004 12:00 AM EDT) 02/23/2004 02/24/2004 11: 40 AM EDT Narrative SUNQUEST - 03/10/2004 1:25 PM EDT [facility] MR #: [id number] [facility] [address] [place], [place] [address] 1980 (Age: 23) FW Collect Date: 02/23/2004 00:00 Receipt Date: 02/24/2004 11:40 Page 1 DEPARTMENT OF PATHOLOGY AND LABORATORY MEDICINE CYTOPATHOLOGY REPORT Email: [email or web address] [id number] ATTENDING MD/Practitioner: Jamey Soto MD. Service: OBE Location: OBE OTHER MD(S): Jamey Dias CNM Reported: 03/10/2004 13:25 Collected: 02/23/2004 00:00 INTERPRETATION THIN PREP (CERVICAL/VAGINAL): NEGATIVE FOR INTRAEPITHELIAL LESION OR MALIGNANCY. PARAKERATOSIS. SATISFACTORY FOR EVALUATION; ENDOCERVICAL/TRANSFORMATION ZONE COMPONENT ABSENT/INSUFFICIENT. Slide scanned and imaged by [employer] Thin[employer] Imaging System with manual review of [...] results is suggested (please call Microbiology at [phone] for results). CLINICAL INFORMATION: Menstrual History: : Second trimester Date of Last Menstrual Period: 10/20/03 Other Clinical Conditions: If ASCUS and > 24 years of age, HPV/DNA testing requested. SPECIMEN DESCRIPTION: A: THIN PREP (CERVICAL/VAGINAL) THIN PREP PROCESS CELLULAR ENHANCEMENT ICD: 622.2 LE[place]OPLAKIA OF CERVIX (HYPERKERATOSIS CERVIX) V76.2 CERVIX, SPECIAL SCREENING FOR MALIGNANT NEOPLASM F: A; RT IMAGE [id number], 46043 C\V (PO) SNOMED CODES: A; [id number] In cases where a pathologist has signed out the report, the service has been rendered in part by a resident. The signing pathologist has performed and is responsible for the reported pathologic evaluation. us Historical Provider LAB PATHOLOGY ORDERABLES Fin al Result SUNQUEST from Last 3 Months or Most Recently Relevant to Health Maintenance Insurance [employer] Care Teams User Interface Engineer Relationship Specialty Start Date End Date Autumn Khanna APRN [address] [place] [address] PCP - General 11/21/24
== END 2025-09-04 23:59 ==
LOC: LAB.DROPOF 09-07 11:02
PROVIDERS: PCP Nurse Practitioner Family; Visit Provider Nurse Practitioner
DX: J06.9 Acute upper respiratory infection, unspecified (principal); J02.9 Acute pharyngitis, unspecified
CPT/HCPCS: 87636